=== PATIENT | male | born 1970 | race Caucasian/White ===

== ENCOUNTER 2019-04-09 01:42 | Emergency (ER) | payer OTHER ==
[~2019-04-09] VITALS: Ht 182.8 cm; Wt 101.1 kg
[2019-04-09] MEDS ORDERED: ASPIRIN 81 MG CHEW (CHILDREN'S ASA) PO ONE (02:30)
--- NOTE | 2019-04-09 02:31 | ED Chest Pain ---
General Stated Complaint: CARDIAC ISSUES Source: patient, other Exam Limitations: no limitations History of Present Illness Date Seen by Provider: Apr 09, 2019 Time Seen by Provider: 02:10 Initial Comments Patient presents to ER by private conveyance with chief complaint last couple days he has been having some intermittent poking goal pain across his chest, migrating nonreproducible. He is not having any pain presently. He is having some mild swelling in his left wrist pain and pressure and is afraid he has a blood clot. He does not have a history of blood clots. He does not smoke cigarettes. He does use chewing tobacco. He does not have diabetes hyperlipidemia or hypertension. 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 He had a thorough workup at [facility] and says that his heart was okay and he does not have heart failure or coronary disease. He is not having any nausea sweats fever chills shortness of breath, cough. He does have a history of carpal tunnel syndrome bilaterally and has had carpal tunnel release by a surgeon in [place] where he recently moved from. He feels that pressure and pain in his left wrist is radiating up the ulnar side of his forearm towards his elbow. When his left wrist is compressed re-creates her symptoms and his elbow. Since he recently moved here he does not have a primary care doctor. His oncologist is at [facility] in [place]. He is a historical smoker and snorts meth with his last use in December of 2017. Allergies and Home Medications Allergies Coded Allergies: No Known Drug Allergies (Unverified , 04/09/19) Patient Home Medication List Home Medication List Reviewed: Yes Review of Systems Review of Systems Constitutional: No chills, No diaphoresis EENTM: No Blurred Vision, No Double Vision Respiratory: Denies Cough, Denies Shortness of Air Cardiovascular: See HPI, Chest Pain; Denies Edema, Denies Irregular Heart Rate, Denies Lightheadedness Gastrointestinal: Denies Abdomen Distended, Denies Abdominal Pain Genitourinary: Denies Burning, Denies Discharge Musculoskeletal: see HPI; No back pain, No joint pain Skin: No pruritus, No rash All Other Systems Reviewed Negative Unless Noted: Yes Past Vlecptj-Rsvxer-Skldqp Hx Patient Social History Alcohol Use: Occasionally Uses Alcohol Beverage of Choice: Wine Recreational Drug Use: Yes Drug of Choice: Meth Smoking Status: Former Smoker Type Used: Smokeless Tobacco Recent Foreign Travel: No Contact w/Someone Who Travel: No Physical Exam Vital Signs Capillary Refill : Height, Weight, BMI Height: '" Weight: lbs. oz. kg; BMI Method: General Appearance: No Apparent Distress, WD/WN, Anxious HEENT: PERRL/EOMI, Pharynx Normal, Moist Mucous Membranes Neck: Full Range of Motion, Normal Inspection Respiratory: Chest Non Tender, Lungs Clear, Normal Breath Sounds, No Accessory Muscle Use, No Respiratory Distress Cardiovascular: Regular Rate, Rhythm, No Edema, Normal Peripheral Pulses Neurologic/Psychiatric: Alert, Oriented x3, No Motor/Sensory Deficits, Other (Tinel's tap positive re-creation of symptoms of the median/ulnar nerve track of the left forearm; he is animated, jerking, unable to hold still.) Skin: Other (negative for erythema, warmth, thrombophlebitis) Progress/Results/Core Measures Results/Orders Lab Results Laboratory Tests Test 04/09/19 02:52 Range/Units White Blood Count 3.8 L 4.3-11.0 10^3/uL Red Blood Count 4.58 4.35-5.85 10^6/uL Hemoglobin 14.0 13.3-17.7 G/DL Hematocrit 42 40-54 % Mean Corpuscular Volume 92 80-99 FL Mean Corpuscular Hemoglobin 31 25-34 PG Mean Corpuscular Hemoglobin Concent 33 32-36 G/DL Red Cell Distribution Width 15.3 H 10.0-14.5 % Platelet Count 112 L 130-400 10^3/uL Mean Platelet Volume 11.0 H 7.4-10.4 FL Neutrophils (%) (Auto) 50 42-75 % Lymphocytes (%) (Auto) 20 12-44 % Monocytes (%) (Auto) 21 H 0-12 % Eosinophils (%) (Auto) 7 0-10 % Basophils (%) (Auto) 2 0-10 % Neutrophils # (Auto) 1.9 1.8-7.8 X 10^3 Lymphocytes # (Auto) 0.8 L 1.0-4.0 X 10^3 Monocytes # (Auto) 0.8 0.0-1.0 X 10^3 Eosinophils # (Auto) 0.3 0.0-0.3 10^3/uL Basophils # (Auto) 0.1 0.0-0.1 10^3/uL Neutrophils % (Manual) 50 % Lymphocytes % (Manual) 21 % Monocytes % (Manual) 20 % Eosinophils % (Manual) 9 % Prothrombin Time 13.5 12.2-14.7 SEC INR Comment 1.0 0.8-1.4 Activated Partial Thromboplast Time 41 H 24-35 SEC D-Dimer 0.47 0.00-0.49 UG/ML Sodium Level 142 135-145 MMOL/L Potassium Level 3.9 3.6-5.0 MMOL/L Chloride Level 109 H 98-107 MMOL/L Carbon Dioxide Level 23 21-32 MMOL/L Anion Gap 10 5-14 MMOL/L Blood Urea Nitrogen 8 7-18 MG/DL Creatinine 0.82 0.60-1.30 MG/DL Estimat Glomerular Filtration Rate > 60 BUN/Creatinine Ratio 10 Glucose Level 84 70-105 MG/DL Calcium Level 9.2 8.5-10.1 MG/DL Corrected Calcium 9.2 8.5-10.1 MG/DL Magnesium Level 2.1 1.6-2.4 MG/DL Total Bilirubin 1.1 H 0.1-1.0 MG/DL Aspartate Amino Transf (AST/SGOT) 50 H 5-34 U/L Alanine Aminotransferase (ALT/SGPT) 24 0-55 U/L Alkaline Phosphatase 126 40-136 U/L Myoglobin 54.3 10.0-92.0 NG/ML Troponin I < 0.028 <0.028 NG/ML B-Type Natriuretic Peptide 36.6 <100.0 PG/ML Total Protein 6.7 6.4-8.2 GM/DL Albumin 4.0 3.2-4.5 GM/DL My Orders Orders - CAREY RICO Cbc With Automated Diff (04/09/19 02:24) Magnesium (04/09/19 02:24) Ekg Tracing (04/09/19 02:24) Comprehensive Metabolic Panel (04/09/19 02:24) Myoglobin Serum (04/09/19 02:24) Protime With Inr (04/09/19 02:24) Partial Thromboplastin Time (04/09/19 02:24) O2 (04/09/19 02:24) Monitor-Rhythm Ecg Trace Only (04/09/19 02:24) BNP (04/09/19 02:24) Aspirin Chewable Tablet (Baby Aspirin Ch (04/09/19 02:30) Fibrin Degradation Products (04/09/19 02:24) Troponin I (04/09/19 02:24) Manual Differential (04/09/19 02:52) Medications Given in ED Current Medications Medications Dose Ordered Sig/Chani Route Start Time Stop Time Status Last Admin Dose Admin Aspirin 324 mg ONCE ONCE PO 04/09/19 02:30 04/09/19 02:31 DC 04/09/19 02:39 324 MG Progress Progress Note #1: Time: 02:33 Progress Note Working up separately. His chest pain in his left upper extremity concerns. His chest pain is fleeting lasting only a few minutes and not present now. His been going on for days and a single EKG and troponin will rule out heart attack as the source of his pain. Sounds like he has described already a very thorough cardiac workup outpatient. The concern that brings him in tonight however is his left wrist and forearm pain and swelling which seems to be more likely a nerve entrapment syndrome probably from the carpal tunnel or cubital tunnel. If the d-dimer failed to rule out blood clot since such a concern of his then we can give him a dose of Lovenox and have an ultrasound done later today. He is in agreement with this plan. Progress Note #2: Time: 02:55 Progress Note The patient declined to further participate in x-ray or laboratory exam. He left AGAINST MEDICAL ADVICE prior to completion of his workup while this provider was in another room. Nursing staff discussed the risks inherent to not completing the workup and he accepted these risks and signed out AMA. He was not having any chest pain at the time he left. 0400: Subsequent review of his labs rules out clots with a negative d-dimer and a negative troponin after days of intermittent chest pain would make a heart attack unlikely. We have already suggested to him that he would need to follow- up with his primary care doctor discussed a nerve entrapment syndrome and hopefully he will pursue this workup outpatient. Initial ECG Impression Date: Apr 09, 2019 Initial ECG Impression Time: 02:34 Initial ECG Rate: 89 Initial ECG Rhythm: Normal Sinus Initial ECG Intervals: QT (502) Initial ECG Impression: Normal Initial ECG Comparisson: No Previous ECG Available Comment No ST elevation or depression. Prolonged QT syndrome. Normal sinus rhythm. 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 Decision time for Depature: 02:55 Referrals: NO,LOCAL PHYSICIAN (PCP/Family) Primary Care Physician Patient Instructions: Cubital Tunnel Syndrome (DC) Add. Discharge Instructions: Please follow-up with the primary care provider or the surgeon who did your previous carpal tunnel release for further management outpatient. Tylenol and ibuprofen as necessary for pain. CAREY RICO Apr 09, 2019 02:31 POS
--- NOTE | 2019-04-09 02:40 | NUR ---
PT STATES, "DON'T YOU KNOW WHO MY DAD IS?" "MY DAD IS DOCTOR PATEL. 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 YA KNOW? MAGIC CHEMISTRY?" THIS MICRO PHOTOGRAPHER/RN INFORMED PT I AM UNAWARE WHO HIS FATHER IS. PT KEEPS ASKING QUESTIONS ABOUT EDUCATION HISTORY.
--- NOTE | 2019-04-09 02:52 | NUR ---
LABS DRAWN BY ER STAFF JESE FUENTES.
--- NOTE | 2019-04-09 02:52 | NUR ---
TO ROOM 6, TO DRAW PTS BLOOD. RIGHT BEFORE INSERTING THE NEEDLE THE PT SAID "I PROMISE YOU WILL BE SORRY IF YOU STICK THAT VEIN ON THE OUTSIDE OF MY ARM". I ASKED THE PT WHAT HE MEANT AND HE REPLIED "HOW ILL REACT, YOU'LL BE SORRY, YOU CAN ONLY STICK THE BIG ONE IN THE MIDDLE" AFTER FINISHING THE LAB DRAW, THE PT THEN BEGAN TO RAISE HIS VOICE AND COMPLAIN ABOUT HOW POOR THE BED SIDE MANNER IS IN THIS FACILITY AND BEGAN RIPPING OFF MONITOR LEADS AND BLOOD PRESSURE CUFF.
--- NOTE | 2019-04-09 02:53 | NUR ---
THIS SERVICENOW ADMINISTRATOR DEVELOPER/RN IN ED ROOM 6 REVIEWING D/C INSTRUCTIONS WITH A PT WHEN LOUD SPEAKING CAN BE HEARD IN HALLWAY. WHEN THIS SERVICENOW ADMINISTRATOR DEVELOPER/RN OPENED THE DOOR THE PT OF THIS ACCOUNT WAS SPEAKING TO JESE FUENTES STATING, "I'VE BEEN TO [facility]. THEY KNOW BEDSIDE MANNER. YOU SHOULD GO STUDY UNDER THEM BECAUSE THEY KNOW BEDSIDE MANNER AT [facility]. YOU AND THAT OTHER NURSE NEED TO GO TO [facility]." PT REQUESTS TO LEAVE AMA. KELSEY RASHEED DISCUSSED WITH PT BENEFITS AND RISKS AND CONSEQUENCES TO LEAVING. PT VOICES UNDERSTANDING, BUT STILL WANTS TO LEAVE AMA. PT SIGNED AMA FORM AT THIS TIME. DR. RICO NOTIFIED.
--- NOTE | 2019-04-09 02:53 | NUR ---
PATIENT COMES OUT OF ROOM 10 WEARING HIS COAT FOLLOWED BY ONE FEMALE PERSON. THIS RN ASKED IF HE WOULD MIND SIGNING AN AMA FORM, HE STOPS AND SAID YES I WILL SIGN IT, THEN CONTINUES TO LOUDLY VERBALIZE HOW "THIS PLACE NEEDS TO LEARN BEDSIDE MANNER" THAT NURSE (POINTING AT GINA PCCT, PATIENT IS YELLING AT THIS TIME.)NEEDS AN EDUCATION ON HOW TO TREAT PATIENTS, HER BEDSIDE MANNER IS TERRIBLE, AND SO IS THAT OTHER NURSE. NEITHER ONE KNOW ANYTHING ABOUT BEDSIDE MANNER, DIMA BEEN TO [facility] AND THEY KNOW HOW TO TREAT THEIR PATIENTS". PATIENT WAS VERY AGGRESSIVE TOWARD GINA, THIS RN WAS STANDING BETWEEN HER AND PATIENT HE POINTED HIS FINGER AT HER AGGRESSIVELY. AMA FORM SIGNED DR RICO INFORMED OF PATIENT DEPARTURE.
[2019-04-09 02:55] VITALS: BP 140/98
[2019-04-09 03:02] LABS: BASOPHILS # (AUTO) 0.1 10^3/uL (0.0-0.1); BASOPHILS % (AUTO) 2 % (0-10); EOSINOPHILS # (AUTO) 0.3 10^3/uL (0.0-0.3); EOSINOPHILS % (AUTO) 7 % (0-10); HEMATOCRIT 42 % (40-54); LYMPHOCYTES # (AUTO) 0.8 X 10^3 (1.0-4.0); LYMPHOCYTES % (AUTO) 20 % (12-44); MEAN CORPUSCULAR HEMOGLOBIN 31 PG (25-34); MEAN CORPUSCULAR HGB CONC 33 G/DL (32-36); MEAN CORPUSCULAR VOLUME 92 FL (80-99); MONOCYTES # (AUTO) 0.8 X 10^3 (0.0-1.0); MONOCYTES % (AUTO) 21 % (0-12); NEUTROPHILS # (AUTO) 1.9 X 10^3 (1.8-7.8); NEUTROPHILS % (AUTO) 50 % (42-75); PLATELET COUNT 112 10^3/uL (130-400); RED CELL DISTRIBUTION WIDTH 15.3 % (10.0-14.5); WHITE BLOOD COUNT 3.8 10^3/uL (4.3-11.0)
[2019-04-09 03:16] LABS: FIBRIN DEGRADATION PRODUCTS 0.47 UG/ML (0.00-0.49); PROTHROMBIN TIME PATIENT 13.5 SEC (12.2-14.7)
[2019-04-09 03:19] LABS: ALANINE AMINOTRANSFERASE 24 U/L (0-55); ALKALINE PHOSPHATASE 126 U/L (40-136); BILIRUBIN,TOTAL 1.1 MG/DL (0.1-1.0); BUN/CREATININE RATIO 10; CALCIUM 9.2 MG/DL (8.5-10.1); CARBON DIOXIDE 23 MMOL/L (21-32); CHLORIDE 109 MMOL/L (98-107); CREATININE SERUM 0.82 MG/DL (0.60-1.30); GFR ESTIMATED > 60; GLUCOSE 84 MG/DL (70-105); MAGNESIUM 2.1 MG/DL (1.6-2.4); POTASSIUM 3.9 MMOL/L (3.6-5.0); SODIUM 142 MMOL/L (135-145); TOTAL PROTEIN 6.7 GM/DL (6.4-8.2)
[2019-04-09 03:53] LABS: LYMPHOCYTES % (MANUAL) 21 %; NEUTROPHILS % (MANUAL) 50 %
[2019-04-09 03:54] LABS: EOSINOPHILS % (MANUAL) 9 %; MONOCYTES % (MANUAL) 20 %
== END 2019-04-09 02:55 | disposition left against medical advice (07) ==
LOC: EDUNIT# 01:42 → ER 01:49
DX: G56.22 Lesion of ulnar nerve, left upper limb (principal); R07.89 Other chest pain; C91.Z1 Other lymphoid leukemia, in remission; Z87.891 Personal history of nicotine dependence
CPT/HCPCS: 36415; 80053; 83735; 83874; 83880; 84484; 85007; 85027; 85379; 85610; 85730; 93005; 93041

== ENCOUNTER 2022-01-02 15:44 | Emergency (ER) | payer MEDICARE ==
[~2022-01-02] VITALS: Ht 180 cm; Wt 113.0 kg
--- NOTE | 2022-01-02 16:38 | ED Headache ---
General Chief Complaint: Head/Cervical Problems Stated Complaint: PERAZA Nursing Triage Note: PT STATES HE HAS A.L.L. HAS A CATHETER IN THE FRONTAL LOBE OF HIS BRAIN, LESION ON LT FRONTAL LOBE,HAS A HEADACHE, HAS BEEN TREATED AT [facility] AND IS TRYING TO MOVE TO FOR TREATMENT, AT [facility] SUGGESTS CT OF HEAD WITH AND W/O CONTRAST. HAS BEEN OUT OF HIS BP MED FOR 2 DAYS Source: patient Exam Limitations: no limitations History of Present Illness Date Seen by Provider: Jan 02, 2022 Time Seen by Provider: 16:33 Initial Comments This is a 51-year-old male that presents to the emergency room for evaluation of headache for the last 3 days. 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 He states that he recently moved up here and is trying to transition care to [place]. He tells me that he has had this headache for the last 3 days and that he spoke with his neurologist yesterday and they referred him to the emergency room to obtain neuroimaging. However, the patient could not get here until today. He denies any fever, chills, shortness of breath, weakness Severity/Quality: moderate Location: frontal Prior Headaches/Recent Trauma: frequent headaches Allergies and Home Medications Allergies Coded Allergies: No Known Drug Allergies (Unverified , 04/09/19) Patient Home Medication List Home Medication List Reviewed: Yes Review of Systems Review of Systems Constitutional: no symptoms reported Eyes: No Symptoms Reported Ears, Nose, Mouth, Throat: no symptoms reported Respiratory: no symptoms reported Cardiovascular: no symptoms reported Musculoskeletal: no symptoms reported Psychiatric/Neurological: Headache Past Nlbzgtf-Hkuzcc-Gnbiok Hx Patient Social History Tobacco Use?: No Substance use?: No Alcohol Use?: Yes Alcohol type: Beer Alcohol Frequency: Rarely Immunizations Up To Date First/Initial COVID19 Vaccinat: 08/2021 COVID19 Vaccine Floor Polisher: 1 SPECIAL COVID SHOT FROM [facility] Seasonal Allergies Seasonal Allergies: No Past Medical History Surgery/Hospitalization HX: 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, HYPERTENSION, MITRAL VALVE REGURGITATION Surgeries: Yes (BILATERAL CARPAL TUNNEL SURGERIES) Respiratory: No Cardiac: No Neurological: No Genitourinary: No Gastrointestinal: No Musculoskeletal: No Endocrine: No HEENT: No Cancer: Yes (ALL) Psychosocial: Yes (OCD) ADD/ADHD Integumentary: No Physical Exam Vital Signs Vital Signs - First Documented 01/02/22 15:52 Temp 36.9 Pulse 93 Resp 20 B/P (MAP) 212/83 (126) Pulse Ox 97 O2 Delivery Room Air Capillary Refill : Less Than 3 Seconds Height, Weight, BMI Height: '" Weight: lbs. oz. kg; 34.00 BMI Method: General Appearance: WD/WN, no apparent distress HEENT: PERRL/EOMI Neck: non-tender, full range of motion Cardiovascular: regular rate, rhythm Respiratory: no respiratory distress Gastrointestinal: normal bowel sounds Extremities: normal range of motion, non-tender Psychiatric: alert, oriented x 3 Skin: normal color, warm/dry Progress/Results/Core Measures Results/Orders Lab Results Laboratory Tests Test 01/02/22 17:20 Range/Units White Blood Count 6.0 4.3-11.0 10^3/uL Red Blood Count 4.44 4.30-5.52 10^6/uL Hemoglobin 14.3 13.3-17.7 g/dL Hematocrit 42 40-54 % Mean Corpuscular Volume 94 80-99 fL Mean Corpuscular Hemoglobin 32 25-34 pg Mean Corpuscular Hemoglobin Concent 34 32-36 g/dL Red Cell Distribution Width 15.2 H 10.0-14.5 % Platelet Count 158 130-400 10^3/uL Mean Platelet Volume 10.3 9.0-12.2 fL Immature Granulocyte % (Auto) 1 % Neutrophils (%) (Auto) 66 42-75 % Lymphocytes (%) (Auto) 13 12-44 % Monocytes (%) (Auto) 15 H 0-12 % Eosinophils (%) (Auto) 4 0-10 % Basophils (%) (Auto) 1 0-10 % Neutrophils # (Auto) 3.9 1.8-7.8 10^3/uL Lymphocytes # (Auto) 0.8 L 1.0-4.0 10^3/uL Monocytes # (Auto) 0.9 0.0-1.0 10^3/uL Eosinophils # (Auto) 0.2 0.0-0.3 10^3/uL Basophils # (Auto) 0.1 0.0-0.1 10^3/uL Immature Granulocyte # (Auto) 0.1 0.0-0.1 10^3/uL Sodium Level 145 135-145 MMOL/L Potassium Level 4.3 3.6-5.0 MMOL/L Chloride Level 112 H 98-107 MMOL/L Carbon Dioxide Level 21 21-32 MMOL/L Anion Gap 12 5-14 MMOL/L Blood Urea Nitrogen 11 7-18 MG/DL Creatinine 0.94 0.60-1.30 MG/DL Estimat Glomerular Filtration Rate 99 BUN/Creatinine Ratio 12 Glucose Level 98 70-105 MG/DL Calcium Level 9.0 8.5-10.1 MG/DL My Orders Orders - CHRISTIANO CHEN Basic Metabolic Panel (01/02/22 16:50) Ct Head W Wo (01/02/22 16:50) Ed Iv/Invasive Line Start (01/02/22 16:50) Cbc With Automated Diff (01/02/22 16:50) Iohexol Injection (Omnipaque 350 Mg/Ml 1 (01/02/22 17:30) Received Contrast (Hold Metformin- Contr (01/02/22 17:30) Sodium Chloride Flush (Catheter Flush Sy (01/02/22 17:30) Ns (Ivpb) (Sodium Chloride 0.9% Ivpb Bag (01/02/22 17:30) Medications Given in ED Current Medications Medications Dose Ordered Sig/Chani Route Start Time Stop Time Status Last Admin Dose Admin Iohexol 100 ml ONCE ONCE IV 01/02/22 17:30 01/02/22 17:31 DC 01/02/22 17:40 80 ML Sodium Chloride 10 ml NEEDED PRN IV 01/02/22 17:30 01/02/22 17:41 10 ML Sodium Chloride 100 ml ONCE ONCE IV 01/02/22 17:30 01/02/22 17:31 DC 01/02/22 17:40 80 ML Vital Signs/I&O 01/02/22 15:52 Temp 36.9 Pulse 93 Resp 20 B/P (MAP) 212/83 (126) Pulse Ox 97 O2 Delivery Room Air Blood Pressure Mean: 126 Departure Communication (PCP) I placed a call to his neurology team at 16:[address] Bell and she recommends CT head w/wo contrast. She also recommends treating the headache and having the patient follow up with his neurology team for an MRI. The CT of the head did not show any obvious acute pathology. I discussed with the patient the results and recommended that he follow-up with the neurology team for the MRI as recommended by the on-call provider. He is in agreement to the care plan and will return with any severe changes or worsening symptoms. Impression Primary Impression: Headache Disposition: 01 HOME, SELF-CARE Condition: Stable Departure-Patient Inst. Decision time for Depature: 18:10 Referrals: NO,LOCAL PHYSICIAN (PCP/Family) Primary Care Physician Patient Instructions: Headache, Adult (DC) Add. Discharge Instructions: Please follow-up with your neurology team as we discussed. They may want to obtain further imaging. Return to the emergency room with any severe changes or worsening of symptoms. All discharge instructions reviewed with patient and/or family. Voiced und erstanding. CHRISTIANO CHEN Jan 02, 2022 16:38
[2022-01-02] MEDS ORDERED: IOHEXOL 350 MG/ML 100 ML (OMNIPAQUE 350) VIAL IV ONE (17:30)
[2022-01-02] MEDS ORDERED: CATHETER FLUSH 10 ML SYR IV PRN (17:30)
[2022-01-02] MEDS ORDERED: NS 100 ML (IVPB) BAG IV ONE (17:30)
[2022-01-02] MEDS ORDERED: HOLD METFORMIN - RECEIVED CONTRAST 20 ML VIAL IV SCH (17:30)
[2022-01-02 17:34] LABS: BASOPHILS # (AUTO) 0.1 10^3/uL (0.0-0.1); BASOPHILS % (AUTO) 1 % (0-10); EOSINOPHILS # (AUTO) 0.2 10^3/uL (0.0-0.3); EOSINOPHILS % (AUTO) 4 % (0-10); HEMATOCRIT 42 % (40-54); HEMOGLOBIN 14.3 g/dL (13.3-17.7); LYMPHOCYTES # (AUTO) 0.8 10^3/uL (1.0-4.0); LYMPHOCYTES % (AUTO) 13 % (12-44); MEAN CORPUSCULAR HEMOGLOBIN 32 pg (25-34); MEAN CORPUSCULAR HGB CONC 34 g/dL (32-36); MEAN CORPUSCULAR VOLUME 94 fL (80-99); MEAN PLATELET VOLUME 10.3 fL (9.0-12.2); MONOCYTES # (AUTO) 0.9 10^3/uL (0.0-1.0); MONOCYTES % (AUTO) 15 % (0-12); NEUTROPHILS # (AUTO) 3.9 10^3/uL (1.8-7.8); NEUTROPHILS % (AUTO) 66 % (42-75); PLATELET COUNT 158 10^3/uL (130-400)
[2022-01-02 17:41] LABS: POTASSIUM 4.3 MMOL/L (3.6-5.0)
[2022-01-02 17:47] LABS: CREATININE SERUM 0.94 MG/DL (0.60-1.30)
--- NOTE | 2022-01-02 17:58 | Diagnostic Imaging Report ---
PROCEDURE: CT head with and without contrast. TECHNIQUE: Multiple contiguous axial images were obtained through the brain before and after the administration of intravenous contrast. Auto Exposure Controls were utilized during the CT exam to meet ALARA standards for radiation dose reduction. INDICATION: 51-year-old male, has ALL, known left frontal lobe lesion, shunt tubing. Headache. CORRELATION STUDY: None. FINDINGS: Right frontal shunt tube is present, tip courses into the anterior aspect of the right frontal lobe, terminating near midline. The ventricles are very slightly prominent, but without definitive hydrocephalus. No intracranial hemorrhage. No midline shift. Basilar cisterns are maintained. No asymmetric edema. Postcontrast imaging demonstrates no significant abnormal intracranial enhancement. Shunt bulb over the right frontal calvarium does appear to be slightly prominent. Bony calvarium intact apart from surgical change. Paranasal sinuses and mastoid air cells are clear. IMPRESSION: Right frontal shunt tube present. Ventricles are very slightly prominent without definitive overt hydrocephalus. However, given no priors for comparison, potential change in size and configuration cannot be assessed. No appreciable midline shift or mass effect. No abnormal contrast enhancement. Dictated by: Dictated on workstation # [id number]
[2022-01-02 18:17] VITALS: BP 161/114
== END 2022-01-02 18:17 | disposition home or self-care (01) ==
LOC: EDUNIT# 15:44 → ER 15:46
DX: R51.9 Headache, unspecified (principal); Z28.311 Partially vaccinated for COVID-19
CPT/HCPCS: 36415; 70470; 80048; 85025

== ENCOUNTER 2022-07-17 17:40 | Emergency (ER) | payer MEDICARE ==
[2022-07-17] MEDS ORDERED: ACHD5005 PO (18:05)
--- NOTE | 2022-07-17 18:06 | ED Upper Extremity ---
General Chief Complaint: Upper Extremity Stated Complaint: BACK / SHOULDER / ARM PAIN Source: patient Exam Limitations: no limitations History of Present Illness Date Seen by Provider: Jul 17, 2022 Time Seen by Provider: 17:48 Initial Comments Here with report of right shoulder pain that has been going on over the last week notes intermittent swelling and is a constant dull ache currently. States that its at the posterior aspect of the lateral shoulder but also has pain from the shoulder blade. States when he gets the pain he can sometimes get numbness that goes all the way down to his hand. Denies any specific injury. 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 He is also had bilateral carpal tunnel release. All of this was done in [place] where he still receives care for leukemia. 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 He does chew but does not smoke. He has been using IcyHot or similar for the pain as well as taking ibuprofen and intermittently taking Tylenol. Due to the recent cell therapy, he cannot take steroids. States that treatment stated helped a little bit but then things come back and he wanted to get checked out. Onset: last week Severity: moderate Pain/Injury Location: right shoulder Method of Injury: unknown Modifying Factors: Worse With Movement; Improves With Pain Medication Allergies and Home Medications Allergies Coded Allergies: No Known Drug Allergies (Unverified , 04/09/19) Patient Home Medication List Home Medication List Reviewed: Yes Hydrocodone/Acetaminophen (Hydrocodone-Acetamin 5-325 mg) 5 Mg-325 Mg Tablet, 1 TAB PO Q6H PRN for PAIN-MODERATE (5-7) Prescribed by: NICK MOBLEY on 07/17/221805 Review of Systems Constitutional: see HPI; No chills, No fever EENTM: no symptoms reported Respiratory: no symptoms reported Cardiovascular: no symptoms reported Musculoskeletal: see HPI, joint pain, muscle pain; No muscle weakness Psychiatric/Neurological: Numbness, Paresthesia Past Rddbdeu-Cffkxr-Ifqnyu Hx Patient Social History Tobacco Use?: Yes Smokeless Tobacco Frequency: Current Everyday User Substance use?: No Alcohol Use?: No Pt feels they are or have been: No Immunizations Up To Date First/Initial COVID19 Vaccinat: 08/2021 Seasonal Allergies Seasonal Allergies: No Past Medical History Surgery/Hospitalization HX: 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 oz. kg; 34.00 BMI Method: General Appearance: WD/WN, no apparent distress Cardiovascular: regular rate, rhythm, no murmur Respiratory: lungs clear, normal breath sounds Shoulder: No asymmetry; pain (Pain with forward extension and full supination of the arm. Pain noted posterior lateral shoulder. Also tender to palpation between shoulder blade and spine. 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 Physical exam performed. Patient has some findings consistent with rotator cuff injury but also potentially some rhomboid injury. He is using toxm-ycl-qespodv therapy and we discussed this further. We did discuss follow-up and outpatient management. No indication for x-ray currently as he has not had specific injury recently. We did give a sling as well as a go pack for hydrocodone and small prescription for same. Prescription therapy and precautions discussed. Pharmacies are not open currently. He will continue dzop-wzv-jwzpomp therapy as well advised follow-up with one of the orthopedist listed or of his choosing. He will also follow-up with his oncology team back in [place]. May benefit from MRI if pain persists. Discharged home with return precautions. Patient verbalized understanding instructions and agreement with plan. Departure Impression Primary Impression: Right shoulder pain Qualified Codes: M25.511 - Pain in right shoulder Disposition: 01 HOME, SELF-CARE Condition: Stable Departure-Patient Inst. Decision time for Depature: 18:02 Referrals: CLAUDIA ANGUIANO MD,ITALIA Ennis MD Patient Instructions: Rotator Cuff Injury (DC), Rotator Cuff Tear Exercises, Shoulder Pain ED, Opioids for Short-Term Treatment of Pain ED Add. Discharge Instructions: All discharge instructions reviewed with patient and/or family. Voiced understanding. You may use hqvm-ymn-ehykfaf Icy Hot with lidocaine patches or cream, Aspercreme with lidocaine patches or cream, Salonpas with lidocaine patches or cream or similar items to area of concern per package directions. You may take ibuprofen 600 mg every 8 hours as needed for pain. You may also take Tylenol/acetaminophen 1000 mg every 8 hours as needed for pain. Otherwise take pain medication as prescribed but do not take with Tylenol/acetaminophen as they both have acetaminophen in them. You may use a sling for comfort as needed over the next several days to weeks. Follow-up with one of the orthopedist listed or of your choosing. Follow-up with your primary team in [place] as well. Return for worse pain, weakness, numbness or other concerns as needed. Scripts Hydrocodone/Acetaminophen (Hydrocodone-Acetamin 5-325 mg) 5 Mg-325 Mg Tablet 1 TAB PO Q6H PRN for PAIN-MODERATE (5-7) for 7 Days, #8 TAB 0 Refills Prov: NICK MOBLEY MD 07/17/22 NICK MOBLEY MD Jul 17, 2022 18:06
[2022-07-17 18:12] VITALS: BP 129/92
== END 2022-07-17 18:11 | disposition home or self-care (01) ==
LOC: EDUNIT# 17:40 → ER 17:41
DX: M25.511 Pain in right shoulder (principal); C95.90 Leukemia, unspecified not having achieved remission; F17.220 Nicotine dependence, chewing tobacco, uncomplicated
CPT/HCPCS: 99283

== ENCOUNTER 2022-07-19 11:16 | Emergency (ER) | payer MEDICARE ==
[~2022-07-19] VITALS: Ht 180 cm; Wt 108.0 kg
[~2022-07-19 11:16] MED LIST: ACHD5005 PO
[2022-07-19] MEDS ORDERED: PENI500T PO (12:20)
--- NOTE | 2022-07-19 12:20 | ED EENT ---
History of Present Illness General Chief Complaint: Dental Problems/Pain Stated Complaint: TOOTH INFECTION | IMMUNO COMPROMISED Nursing Triage Note: ARRIVED VIA AMB WITH COMPLAINTS OF LEFT SIDED DENTAL PAIN AND FACIAL SWELLING. STATES HE WENT TO THE DENTIST YESTERDAY BUT WAS NOT PRESCRIBED ABX. Source: patient Exam Limitations: no limitations History of Present Illness Date Seen by Provider: Jul 19, 2022 Time Seen by Provider: 12:05 Initial Comments Patient is a 51-year-old male who presents to the emergency room with a chief complaint of left-sided dental pain. Patient states that he had onset of pain over the course of about a week. He states he went to the dentist yesterday and was not prescribed any antibiotics. Patient is very concerned because of continuing pain/discomfort and some swelling that he has an infection. He has a history of immunocompromise status with leukemia, 4 years in remission. He recently moved to the area, has not established care yet. Denies fevers or chills. No drainage from an abscess in his mouth or foul taste. No other complaints of recent illness or injury. Simply desirous of antibiotics today. I was notified by nursing staff that the patient was quite upset due to his wait. Multiple other patients in the department requiring emergent care as the patient was simply requesting an antibiotic, there was a slight delay in assessing the patient. Apologies were made. Timing/Duration: gradual Severity: moderate Location: dental Prearrival Treatment: over the counter meds (pain medications) Associated Symptoms: denies symptoms, tooth pain Allergies and Home Medications Allergies Coded Allergies: No Known Drug Allergies (Unverified , 04/09/19) Patient Home Medication List Home Medication List Reviewed: Yes Penicillin V Potassium (Penicillin V Potassium) 500 Mg Tablet, 500 MG PO QID Prescribed by: MOSES IVORY on 07/19/22 1220 Discontinued Medications Hydrocodone/Acetaminophen (Hydrocodone-Acetamin 5-325 mg) 5 Mg-325 Mg Tablet, 1 TAB PO Q6H PRN for PAIN-MODERATE (5-7) Discontinued Reason: No Longer Taking Prescribed by: NICK MOBLEY on 07/17/22 1806 Last Action: Discontinued Review of Systems Review of Systems Constitutional: see HPI Ears: No Symptoms Reported Nose: no symptoms reported Mouth: pain (Dental pain) Throat: no symptoms reported Respiratory: no symptoms reported Cardiovascular: no symptoms reported Gastrointestinal: no symptoms reported Musculoskeletal: no symptoms reported Skin: no symptoms reported All Other Systems Reviewed Negative Unless Noted: Yes Past Qlvloum-Vdrknd-Bozhnq Hx Patient Social History Tobacco Use?: Yes Substance use?: No Alcohol Use?: No Immunizations Up To Date First/Initial COVID19 Vaccinat: 08/2021 Second COVID19 Vaccination Ramon: 08/2021 Third COVID19 Vaccination Date: 08/2021 Seasonal Allergies Seasonal Allergies: No Past Medical History Surgery/Hospitalization HX: 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 oz. kg; 33.00 BMI Method: General Appearance: WD/WN, no apparent distress Eyes: bilateral eye normal inspection, bilateral eye PERRL, bilateral eye EOMI Ears: bilateral ear auricle normal, bilateral ear canal normal, bilateral ear TM normal Mouth/Throat: normal mouth inspection; No dental tenderness; other (No evidence of intraoral dental abscess, the patient is complaining of dental pain lower jaw.) Neck: non-tender, full range of motion, supple Cardiovascular: regular rate, rhythm Respiratory: lungs clear, normal breath sounds, no respiratory distress, no accessory muscle use Neurologic/Psychiatric: alert, normal mood/affect, oriented x 3 Skin: normal color, warm/dry Progress/Results/Core Measures Results/Orders Vital Signs/I&O Blood Pressure Mean: 107 Departure Impression Primary Impression: Pain, dental Disposition: 01 HOME, SELF-CARE Condition: Stable Departure-Patient Inst. Decision time for Depature: 12:16 Referrals: [facility] [place],LOCAL PHYSICIAN (PCP) Primary Care Physician Patient Instructions: Dental Pain Add. Discharge Instructions: Take the penicillin antibiotic as directed for the next 10 days. Try and avoid using chewing tobacco as it constricts the blood flow to the teeth and can worsen infection and pain. Over the counter Ibuprofen 3 tablets every 6 hours as needed for pain. Always take Ibuprofen with food. If you develop worsening pain with facial swelling and/or fever please return to the Emergency Department for re-evaluation. [facility] on [place] here in [facility] runs a dental clinic. Scripts Penicillin V Potassium (Penicillin V Potassium) 500 Mg Tablet 500 MG PO QID for 10 Days, #40 TAB Prov: MOSES IVORY MD 07/19/22 Copy Copies To 1: DEISY LARRY KATHRYN M MD Jul 19, 2022 12:20
[2022-07-19 12:32] VITALS: BP 138/91
== END 2022-07-19 12:34 | disposition home or self-care (01) ==
LOC: EDUNIT# 11:16 → ER 11:19
DX: K08.89 Other specified disorders of teeth and supporting structures (principal)
CPT/HCPCS: 99282

== ENCOUNTER 2022-07-19 22:32 | Emergency (ER) | payer MEDICARE ==
[~2022-07-19 22:32] MED LIST changes: +PENI500T PO
== END 2022-07-19 22:55 | disposition left against medical advice (07) ==
LOC: EDUNIT# 22:32 → ER 22:33
DX: K08.89 Other specified disorders of teeth and supporting structures (principal); R22.0 Localized swelling, mass and lump, head

== ENCOUNTER 2022-08-12 01:22 | Emergency (ER) | payer MEDICARE ==
[~2022-08-12] VITALS: Ht 180 cm; Wt 108.0 kg
[2022-08-12 01:35] VITALS: BP 140/101
[2022-08-12] MEDS ORDERED: BENZONATATE 100 MG (TESSALON) CAPSULE PO STA (02:03)
--- NOTE | 2022-08-12 02:03 | ED Cough/URI ---
General Chief Complaint: Cough/Cold/Flu Symptoms Stated Complaint: PERSISTENT COUGH Nursing Triage Note: Pt presents with c/o cough x2 weeks. He reports he went to clinic last monday and received a z-akil and inhaler, but continues to cough. Pt has recent t-cell therapy and is unable to take steroid. He states he receives no relief from inhaler. Source: patient Exam Limitations: no limitations History of Present Illness Date Seen by Provider: Aug 12, 2022 Time Seen by Provider: 01:50 Initial Comments Patient is a 51-year-old male who presents to the emergency department with a chief complaint of cough for the last 10 days. He denies fevers or chills. No runny nose, sore throat or congestion. He has been wheezing, using an inhaler. Last use was around 5 PM. Former smoker, quit a year ago. Also "fighting ALL" for the last 5 years recently completed "CAR-T therapy" at the end of June. He is currently getting his treatment through . He denies a history of DVT/blood clot. No recent travel, prolonged immobility or surgeries. Cough is productive of white sputum . States that he was seen at [facility] on Monday, had a chest x-ray and was prescribed a "Z-Akil" but it has not helped. He states he has been taking Mucinex and cough suppressant without relief. No abdominal pain, nausea vomiting or diarrhea. Timing/Duration: other (10 days) Severity/Quality: productive cough (white sputum), sputum Modifying Factors: Improves With Albuterol Inhaler (last use 5 pm) Associated Symptoms: cough, wheezing Allergies and Home Medications Allergies Coded Allergies: No Known Drug Allergies (Unverified , 04/09/19) Patient Home Medication List Home Medication List Reviewed: Yes Penicillin V Potassium (Penicillin V Potassium) 500 Mg Tablet, 500 MG PO QID Prescribed by: MOSES IVORY on 07/19/22 1220 Review of Systems Review of Systems Constitutional: see HPI EENTM: no symptoms reported Respiratory: cough, phlegm, wheezing Gastrointestinal: no symptoms reported Genitourinary: no symptoms reported Musculoskeletal: no symptoms reported Skin: no symptoms reported Psychiatric/Neurological: No Symptoms Reported All Other Systems Reviewed Negative Unless Noted: Yes Past Oavxbcp-Trzklo-Bdbusg Hx Immunizations Up To Date Influenza Vaccine Up-to-Date: No; Not Current First/Initial COVID19 Vaccinat: 08/2021 Second COVID19 Vaccination Ramon: 08/2021 Third COVID19 Vaccination Date: 08/2021 Seasonal Allergies Seasonal Allergies: No Past Medical History Surgery/Hospitalization HX: 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, HYPERTENSION, MITRAL VALVE REGURGITATION Surgeries: Yes (BILATERAL CARPAL TUNNEL SURGERIES) Respiratory: No Cardiac: No Neurological: No Genitourinary: No Gastrointestinal: No Musculoskeletal: No Endocrine: No HEENT: No Cancer: Yes (ALL) Psychosocial: Yes (OCD) ADD/ADHD Integumentary: No Physical Exam Vital Signs - First Documented 08/12/22 08/12/22 01:35 02:29 Temp 36.4 Pulse 97 Resp 20 B/P (MAP) 140/101 (114) Pulse Ox 94 O2 Delivery Room Air O2 Flow Rate 0 FiO2 21 Capillary Refill : Less Than 3 Seconds Height: '" Weight: lbs. oz. kg; 33.00 BMI Method: General Appearance: WD/WN, no apparent distress Eyes: Bilateral Eye Normal Inspection, Bilateral Eye PERRL, Bilateral Eye EOMI Progress/Results/Core Measures Suspected Sepsis SIRS Temperature: Pulse: 97 Respiratory Rate: 20 Laboratory Tests 08/12/22 02:14: White Blood Count 4.1L Blood Pressure 140 /101 Mean: 114 Laboratory Tests 08/12/22 02:14: Creatinine 0.85, Platelet Count 191 Results/Orders Lab Results Laboratory Tests Test 08/12/22 02:14 Range/Units White Blood Count 4.1 L 4.3-11.0 10^3/uL Red Blood Count 4.45 4.30-5.52 10^6/uL Hemoglobin 14.6 13.3-17.7 g/dL Hematocrit 42 40-54 % Mean Corpuscular Volume 93 80-99 fL Mean Corpuscular Hemoglobin 33 25-34 pg Mean Corpuscular Hemoglobin Concent 35 32-36 g/dL Red Cell Distribution Width 14.9 H 10.0-14.5 % Platelet Count 191 130-400 10^3/uL Mean Platelet Volume 10.9 9.0-12.2 fL Immature Granulocyte % (Auto) 1 % Neutrophils (%) (Auto) 68 42-75 % Lymphocytes (%) (Auto) 12 12-44 % Monocytes (%) (Auto) 13 H 0-12 % Eosinophils (%) (Auto) 5 0-10 % Basophils (%) (Auto) 1 0-10 % Neutrophils # (Auto) 2.8 1.8-7.8 10^3/uL Lymphocytes # (Auto) 0.5 L 1.0-4.0 10^3/uL Monocytes # (Auto) 0.6 0.0-1.0 10^3/uL Eosinophils # (Auto) 0.2 0.0-0.3 10^3/uL Basophils # (Auto) 0.0 0.0-0.1 10^3/uL Immature Granulocyte # (Auto) 0.1 0.0-0.1 10^3/uL D-Dimer 0.29 0.00-0.49 UG/ML Sodium Level 140 135-145 MMOL/L Potassium Level 4.0 3.6-5.0 MMOL/L Chloride Level 108 H 98-107 MMOL/L Carbon Dioxide Level 21 21-32 MMOL/L Anion Gap 11 5-14 MMOL/L Blood Urea Nitrogen 11 7-18 MG/DL Creatinine 0.85 0.60-1.30 MG/DL Estimat Glomerular Filtration Rate 107 BUN/Creatinine Ratio 13 Glucose Level 87 70-105 MG/DL Calcium Level 9.3 8.5-10.1 MG/DL My Orders Orders - MOSES IVORY MD Ed Iv/Invasive Line Start (08/12/22 02:03) Cbc With Automated Diff (08/12/22 02:03) Basic Metabolic Panel (08/12/22 02:03) Fibrin Degradation Products (08/12/22 02:03) Chest Pa/Lat (2 View) (08/12/22 02:03) Benzonatate Capsule (Tessalon Perles) (08/12/22 02:03) Albuterol/Ipra Inhalation Soln (Duoneb I (08/12/22 02:15) Svn Small Volume Nebulizer (08/12/22 02:03) Rx-Acetaminophen/Codeine (Rx-Tylenol #3) (08/12/22 03:00) Medications Given in ED Current Medications Medications Dose Ordered Sig/Chani Route Start Time Stop Time Status Last Admin Dose Admin Albuterol/ Ipratropium 3 ml ONCE ONCE INH 08/12/22 02:15 08/12/22 02:16 DC 08/12/22 02:29 3 ML Vital Signs/I&O 08/12/22 08/12/22 01:35 02:29 Temp 36.4 Pulse 97 Resp 20 B/P (MAP) 140/101 (114) Pulse Ox 94 O2 Delivery Room Air O2 Flow Rate 0 FiO2 21 Capillary Refill : Less Than 3 Seconds Blood Pressure Mean: 114 Progress Note : Time: 03:12 Progress Note Patient seen and examined, evaluation today includes physical exam, CBC, basic metabolic panel, D-dimer and two-view chest x-ray. Physical exam pertinent for well-developed well-nourished 51-year-old male actively coughing with forced expiratory wheeze as well as scattered expiratory wheezes in the left lung more than the right lung. No increased work of breathing or respiratory distress. Room air sats 97%. HEENT exam otherwise unremarkable. Heart is regular, abdomen is soft and benign. No lower extremity edema or calf tenderness. Sli ghtly hypertensive with diastolic of 105. Differential diagnosis based on history and physical examination, pneumonia, bronchitis, exacerbation of reactive airway disease/COPD, pulmonary embolism Labs independently reviewed by me, CBC shows a white blood cell count of 4.1 with slightly depressed lymphocytes. Chemistry within normal limits. D-dimer negative. Chest x-ray independently reviewed by me, slightly hyperexpanded lungs with no infiltrate or effusion, normal mediastinal structures. Patient is treated with Tessalon Perles here in the emergency department as well as a DuoNeb breathing treatment. He had a little relief of symptoms for short while but then started coughing again. Discussed findings with the patient no findings concerning for pneumonia. He is not persistently wheezing at discharge. He may have an element of COPD. His D-dimer is negative helpful in excluding pulmonary embolism. He is PERC negative. Patient will be discharged home with Tessalon Perles and acetaminophen with codeine syrup. Recommendations for cool-mist humidifier, Robitussin [id number]. Follow-up with primary. He cannot have steroids for 3 months post CAR-T therapy. Return precautions provided he verbalized understanding of the plan of care. All questions are sought and answered. Diagnostic Imaging Diagonstic Imaging: Xray Plain Films/CT/US/NM/MRI: chest Comments Chest x-ray, independent interpretation by me, hyperexpanded, no infiltrate or effusion Departure Impression Primary Impression: Bronchitis Disposition: 01 HOME, SELF-CARE Condition: Stable Departure-Patient Inst. Decision time for Depature: 03:00 Referrals: NO,LOCAL PHYSICIAN (PCP/Family) Primary Care Physician Patient Instructions: Bronchitis, Adult ED Add. Discharge Instructions: Drink plenty of fluids to stay well hydrated. Take the tylenol with codeine syrup 1-2 teaspoons every 6 hours as needed for cough. I have sent a prescription to your pharmacy. Continue your inhaler, 2 puffs every 4 hours as needed for wheezing. You should take an over the counter Allergy medication such as Claritin or chrissy, this will help with mucous production. Robitussin is a good medication for cough as well. Run a cool mist humidifier in your room at night. FOllow up with the clinic next week for re-evaluation. Return to the Emergency Department for any new, concerning or emergent complai nts. Scripts Benzonatate (TESSALON PERLES) 100 Mg Capsule 200 MG PO TID PRN for cough, #20 CAP Prov: MOSES IVORY MD 08/12/22 Acetaminophen with Codeine (Acetaminop-Codeine 120-12 mg/5) 120 Mg-12 Mg/5 Ml Solution 10 ML PO Q6H PRN for cough, #100 ML Prov: MOSES IVORY MD 08/12/22 MOSES IVORY MD Aug 12, 2022 02:03
[2022-08-12] MEDS ORDERED: RT-ALBUTEROL/IPRATROPIUM 3 ML (DUONEB) VIAL INH ONE (02:15)
[2022-08-12 02:22] LABS: BASOPHILS % (AUTO) 1 % (0-10); EOSINOPHILS # (AUTO) 0.2 10^3/uL (0.0-0.3); EOSINOPHILS % (AUTO) 5 % (0-10); HEMATOCRIT 42 % (40-54); HEMOGLOBIN 14.6 g/dL (13.3-17.7); LYMPHOCYTES # (AUTO) 0.5 10^3/uL (1.0-4.0); LYMPHOCYTES % (AUTO) 12 % (12-44); MEAN CORPUSCULAR HEMOGLOBIN 33 pg (25-34); MEAN CORPUSCULAR HGB CONC 35 g/dL (32-36); MEAN CORPUSCULAR VOLUME 93 fL (80-99); MEAN PLATELET VOLUME 10.9 fL (9.0-12.2); MONOCYTES # (AUTO) 0.6 10^3/uL (0.0-1.0); MONOCYTES % (AUTO) 13 % (0-12); NEUTROPHILS # (AUTO) 2.8 10^3/uL (1.8-7.8); NEUTROPHILS % (AUTO) 68 % (42-75); PLATELET COUNT 191 10^3/uL (130-400); WHITE BLOOD COUNT 4.1 10^3/uL (4.3-11.0)
[2022-08-12 02:38] LABS: CALCIUM 9.3 MG/DL (8.5-10.1)
[2022-08-12 02:42] LABS: CREATININE SERUM 0.85 MG/DL (0.60-1.30)
[2022-08-12] MEDS ORDERED: ACET118E PO (03:04)
[2022-08-12] MEDS ORDERED: BENZ100C18 PO (03:04)
[2022-08-12] MEDS: RX-ACETAMINOPHEN/CODEINE TAB PPK #4 PO SCH (03:14)
--- NOTE | 2022-08-12 07:00 | Diagnostic Imaging Report ---
PATIENT HISTORY: cough wheezing SOB. TECHNIQUE: Two views of the chest. COMPARISON: None FINDINGS: The lung volumes are normal. No focal consolidation is seen. No large pleural effusion or pneumothorax is seen. The cardiomediastinal silhouette is normal in size and contour. No acute osseous abnormality is seen. IMPRESSION: No acute pulmonary abnormality seen. Dictated by: Dictated on workstation # [id number]
== END 2022-08-12 03:25 | disposition home or self-care (01) ==
LOC: EDUNIT# 01:22 → ER 01:30
DX: J40 Bronchitis, not specified as acute or chronic (principal); I10 Essential (primary) hypertension; Z87.891 Personal history of nicotine dependence; Z79.51 Long term (current) use of inhaled steroids
CPT/HCPCS: 36415; 71046; 80048; 85025; 85379; 94640

== ENCOUNTER 2022-09-17 06:20 | Emergency (ER) | payer MEDICARE ==
[~2022-09-17] VITALS: Ht 175.2 cm; Wt 90.7 kg
[~2022-09-17 06:20] MED LIST changes: +ACET118E PO; +BENZ100C18 PO
[2022-09-17 06:28] VITALS: BP 154/105
--- NOTE | 2022-09-17 06:50 | ED General ---
General Chief Complaint: Substance Abuse Stated Complaint: RT SIDE OF FACE SWELLING,EARS POPPING Nursing Triage Note: PATIENT AMBULATORY TO ROOM WIHT COMPLAINT OF PRESSURE RT SIDE OF NECK AND LOSS OF SENSATION IN LOWER EXTREMITIES. PATIENT STATES HE DID METH LAST NIGHT, STATES HE HAS BEEN CLEAN FOR A "WHILE" Source of Information: Patient Exam Limitations: No Limitations History of Present Illness Date Seen by Provider: September 17, 2022 Time Seen by Provider: 06:30 Initial Comments This 52-year-old gentleman presents to the emergency room with complaints of swelling in his right posterior neck, right-sided facial discomfort and swelling, right foot numbness, right ear popping, and skin sores. He is concerned about having a stroke or something wrong with a ruptured artery. He recently relapsed with methamphetamine use. He used methamphetamine last night. 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 He was treated and is followed by an oncologist in [place] and reports he receives quarterly bone marrow biopsies for surveillance. He reports now living here in the [facility]. Despite having 5 emergency room visits in the last 3 months, he has not established with a primary care provider. His complaints of swelling and numbness are not validated on exam with the exception of some subtle variation in sensation on the right ankle. Sensation is maintained but feels a little different than the left. He otherwise appears neurologically intact and no swelling is noted anywhere except to the left nasal labia where he has a ellison and associated cellulitis. Allergies and Home Medications Allergies Coded Allergies: No Known Drug Allergies (Unverified , 04/09/19) Patient Home Medication List Home Medication List Reviewed: Yes Acetaminophen with Codeine (Acetaminop-Codeine 120-12 mg/5) 120 Mg-12 Mg/5 Ml Solution, 10 ML PO Q6H PRN for cough Prescribed by: MOSES IVORY on 08/12/22 030 Benzonatate (Tessalon Perles) 100 Mg Capsule, 200 MG PO TID PRN for cough Prescribed by: MOSES IVORY on 08/12/22 0304 Penicillin V Potassium (Penicillin V Potassium) 500 Mg Tablet, 500 MG PO QID Prescribed by: MOSES IVORY on 07/19/22 1220 Sulfamethoxazole/Trimethoprim (Bactrim Ds Tablet) 1 Each Tablet, 1 EACH PO BID Prescribed by: FLAVIA SAGASTUME on 09/17/22 0657 Review of Systems Review of Systems Constitutional: no symptoms reported EENTM: see HPI Respiratory: no symptoms reported Cardiovascular: no symptoms reported Gastrointestinal: no symptoms reported Genitourinary: no symptoms reported Musculoskeletal: no symptoms reported Skin: see HPI Psychiatric/Neurological: See HPI Hematologic/Lymphatic: See HPI Immunological/Allergic: no symptoms reported Past Onmxtvx-[id number]-[id number] Hx Patient Social History Tobacco Use?: No Smokeless Tobacco Frequency: Current Everyday User Use of E-Cig and/or Vaping dev: No Substance use?: Yes Substance type: Methamphetamine Alcohol Use?: Yes Alcohol Frequency: Once in a while Immunizations Up To Date First/Initial COVID19 Vaccinat: 08/2021 Second COVID19 Vaccination Ramon: 08/2021 Third COVID19 Vaccination Date: 08/2021 Seasonal Allergies Seasonal Allergies: No Past Medical History Surgery/Hospitalization HX: 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, HYPERTENSION, MITRAL VALVE REGURGITATION Surgeries: Yes (BILATERAL CARPAL TUNNEL SURGERIES, bone marrow biopsy) Respiratory: No Cardiac: Yes Hypertension, Valvular Heart Disease (Valvular regurg) Neurological: Yes Neuropathy Genitourinary: No Gastrointestinal: No Musculoskeletal: No Endocrine: No HEENT: No Cancer: Yes (ALL in remission) Did You Recieve Any Treatments: Yes What Type of Treatment Did You: Chemotherapy, Surgical Intervention Psychosocial: Yes (OCD, substance abuse) ADD/ADHD Integumentary: No Physical Exam Vital Signs Vital Signs - First Documented 09/17/22 06:28 Temp 36.5 Pulse 88 Resp 18 B/P (MAP) 154/105 (121) Pulse Ox 98 O2 Delivery Room Air Capillary Refill : Less Than 3 Seconds Height, Weight, BMI Height: '" Weight: lbs. oz. kg; 29.00 BMI Method: General Appearance: No Apparent Distress, WD/WN HEENT: PERRL/EOMI, TMs Normal, Pharynx Normal, Other (There is a ellison on the underside of the left nasal labia with associated erythema and swelling of the left nasal labia suggestive of cellulitis) Neck: Normal Inspection, Non Tender, Supple; No Lymphadenopathy (L), No Lymphadenopathy (R) Respiratory: Lungs Clear, Normal Breath Sounds, No Accessory Muscle Use, No Respiratory Distress Cardiovascular: Regular Rate, Rhythm, Normal Peripheral Pulses, Systolic Murmur (Very subtle), Other (Scant lower extremity edema) Gastrointestinal: Non Tender, Soft; No Distended Extremity: Non Tender, Other (Scant lower extremity edema) Neurologic/Psychiatric: Alert, Oriented x3, Normal 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, 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 Norm as Tested; No Motor Weakness; Other (Subtle decrease in sensation intensity in the right ankle consistent in distribution of his neuropathy) Skin: Warm/Dry, Erythema (Left nasal labia), Other (Few scattered excoriated skin sores) Progress/Results/Core Measures Suspected Sepsis SIRS Temperature: Pulse: 88 Respiratory Rate: 18 Blood Pressure 154 /105 Mean: 121 Results/Orders My Orders Orders - FLAVIA ADAMS MD Sulfamethoxazole/Trimet Ds Tab (Bactrim (09/17/22 07:00) Vital Signs/I&O 09/17/22 06:28 Temp 36.5 Pulse 88 Resp 18 B/P (MAP) 154/105 (121) Pulse Ox 98 O2 Delivery Room Air Capillary Refill : Less Than 3 Seconds Blood Pressure Mean: 121 Progress Note : Progress Note By my interpretation of his exam, the only significant finding was a ellison with associated cellulitis of the left nasal labia. He had no measurable weakness on neurologic exam. His change in sensation of the right ankle seems to be in a distribution of his neuropathy and an exacerbation of chronic neuropathy. There was no true loss of sensation. He seems paranoid about complaints that I cannot validate on exam. I suspect he has had an exacerbation of his neuropathy due to recent relapse of methamphetamine use. He is receiving instructions on return precautions regarding stroke symptoms. I did offer CT scan of the head and basic labs as a precaution but did communicate that I was not suspicious we would find major abnormalities on the studies based on his exam findings. He elected to forego the CT and labs. I did unroof the ellison on his left nasal labia. Skin was cleaned with alcohol and a hypodermic needle was used to scrape off the ellison. Skin was then cleaned again with alcohol. His first dose of Bactrim was received in the emergency room. He has been given resources for local primary care providers and contact information for [facility] and [facility] for help with substance abuse. See discharge instructions for further discussion. Departure Impression Primary Impression: Cellulitis of nose Additional Impressions: Neuropathy Methamphetamine use Disposition: HOME, SELF-CARE Condition: Stable Departure-Patient Inst. Referrals: FLOR AUGUSTE MD,ESMER Geller MD [facility] DUTCH,ERIC BOX,JESUSITA Myers MD NO,LOCAL PHYSICIAN (PCP) Primary Care Physician WANDA ARCHER,VINCENT SALGADO MD, DO Patient Instructions: ALCOHOL AND SUBSTANCE ABUSE, Cellulitis and Erysipelas (Skin Infections) Add. Discharge Instructions: Establish with a primary care provider soon as possible. A list of local providers is given below. Complete your antibiotics as prescribed. Discontinue methamphetamine use and seek assistance with substance abuse. Some good local resources including the [facility] at [phone] and [facility] at [phone]. Return to the emergency room if you develop signs or symptoms of stroke including paralysis or weakness of your extremities, facial drooping, problems speaking or understanding speech, confusion, vision changes, loss of sensation different than your neuropathy, or other sudden changes in your neurologic status. Also return to the emergency room if you have progressive signs of infection such as rapidly spreading redness of the skin, fever, etc. All discharge instructions reviewed with patient and/or family. Voiced understanding. Scripts Sulfamethoxazole/Trimethoprim (Bactrim Ds Tablet) 1 Each Tablet 1 EACH PO BID, #14 TAB Prov: FLAVIA ADAMS MD 09/17/22 FLAVIA ADAMS MD September 17, 2022 06:50
[2022-09-17] MEDS ORDERED: SULF1TAB38 PO (06:57)
[2022-09-17] MEDS ORDERED: TRIM/SULFAMETH 160/800 (SEPTRA DS) TAB PO ONE (07:00)
== END 2022-09-17 07:03 | disposition home or self-care (01) ==
LOC: EDUNIT# 06:20 → ER 06:23
DX: J34.0 Abscess, furuncle and carbuncle of nose (principal); F15.90 Other stimulant use, unspecified, uncomplicated; G62.89 Other specified polyneuropathies; C91.01 Acute lymphoblastic leukemia, in remission; F17.290 Nicotine dependence, other tobacco product, uncomplicated; Z79.899 Other long term (current) drug therapy; Z28.310 Unvaccinated for COVID-19
CPT/HCPCS: 99283

== ENCOUNTER 2023-01-29 17:38 | Emergency (ER) | payer MEDICARE ==
[~2023-01-29] VITALS: Ht 180.3 cm; Wt 106.6 kg
[~2023-01-29 17:38] MED LIST changes: +SULF1TAB38 PO
[2023-01-29] MEDS ORDERED: NS IV 1000 ML 1,000 ML IV STA ×2 (17:47→19:35)
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
[2023-01-29 17:56] LABS: BASOPHILS % (AUTO) 3 % (0-10); EOSINOPHILS % (AUTO) 3 % (0-10); HEMATOCRIT 30 % (40-54); HEMOGLOBIN 10.4 g/dL (13.3-17.7); LYMPHOCYTES # (AUTO) 0.3 10^3/uL (1.0-4.0); LYMPHOCYTES % (AUTO) 74 % (12-44); MEAN CORPUSCULAR HEMOGLOBIN 33 pg (25-34); MEAN CORPUSCULAR HGB CONC 35 g/dL (32-36); MEAN CORPUSCULAR VOLUME 93 fL (80-99); MEAN PLATELET VOLUME 9.6 fL (9.0-12.2); MONOCYTES % (AUTO) 9 % (0-12); NEUTROPHILS % (AUTO) 11 % (42-75)
[2023-01-29 17:58] LABS: PLATELET COUNT 21 10^3/uL (130-400); WHITE BLOOD COUNT 0.4 10^3/uL (4.3-11.0)
[2023-01-29] MEDS ORDERED: Tetanus/Diphtheria/Pertussis (Acell) ADULT Vaccine 0.5 ML IM ONE (18:00)
[2023-01-29 18:06] LABS: ALBUMIN 4.2 GM/DL (3.2-4.5)
[2023-01-29 18:07] LABS: POTASSIUM 3.5 MMOL/L (3.6-5.0)
[2023-01-29 18:08] LABS: CALCIUM 8.7 MG/DL (8.5-10.1)
[2023-01-29 18:09] LABS: TOTAL PROTEIN 6.4 GM/DL (6.4-8.2)
[2023-01-29 18:11] LABS: BILIRUBIN,TOTAL 2.1 MG/DL (0.1-1.0)
[2023-01-29 18:17] LABS: BAND NEUTROPHILS 0 %; LYMPHOCYTES % (MANUAL) 88 %; MONOCYTES % (MANUAL) 4 %; NEUTROPHILS % (MANUAL) 8 %
[2023-01-29 18:18] LABS: BASOPHILS % (MANUAL) 0 %; EOSINOPHILS % (MANUAL) 0 %; RBC MORPH NORMAL
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
[2023-01-29 19:35] LABS: CREATININE SERUM 0.85 MG/DL (0.60-1.30)
[2023-01-29] MEDS ORDERED: LORazepam 1 MG TABLET PO STA (19:35)
[2023-01-29] MEDS ORDERED: NICOTINE 2 MG LOZENGE MM STA (19:35)
[2023-01-29] MEDS ORDERED: VANCOMYCIN INJECTION 1,000 MG in NS (IVPB) 250 ML 250 ML IV ONE (19:45)
[2023-01-29] MEDS ORDERED: PIPERACILLIN/Tazobactam 4.5 GM in NS (IVPB) 100 ML 100 ML IV ONE (19:45)
[2023-01-29 19:50] LABS: PROTHROMBIN TIME PATIENT 13.6 SEC (12.2-14.7)
--- NOTE | 2023-01-29 20:32 | Diagnostic Imaging Report ---
EXAMINATION: Chest 1 view. HISTORY: Sepsis. Neutropenia. COMPARISON: 08/12/2022. FINDINGS: The lung volumes are normal. No focal consolidation is seen. No large pleural effusion or pneumothorax is seen. The cardiomediastinal silhouette is normal in size and contour. No acute osseous abnormality is seen. IMPRESSION: No acute pleuroparenchymal process. Dictated by: Dictated on workstation # [id number]
[2023-01-29] MEDS ORDERED: KETOROLAC INJ 30 MG/ML VIAL IVP ONE (21:15)
[2023-01-29 22:28] VITALS: BP 135/84
[2023-01-29] MEDS ORDERED: ACETAMINOPHEN 500 MG TABLET PO ONE (22:30)
== END 2023-01-29 22:28 | disposition short-term general hospital (02) ==
LOC: EDUNIT# 17:38 → ER 17:42
DX: S40.011A Contusion of right shoulder, initial encounter (principal); S00.81XA Abrasion of other part of head, initial encounter; D70.9 Neutropenia, unspecified; L03.113 Cellulitis of right upper limb; C91.00 Acute lymphoblastic leukemia not having achieved remission; Z23 Encounter for immunization; W18.30XA Fall on same level, unspecified, initial encounter
CPT/HCPCS: 36415; 70450; 71045; 80053; 83605; 83735; 85007; 85027; 85384; 85610; 85730; 87040; 90715

== ENCOUNTER 2023-02-17 02:43 | Emergency (ER) | payer MEDICARE ==
--- NOTE | 2023-02-17 03:16 | ED General ---
General Stated Complaint: FEELS PULSE IN BACK OF NECK,PSYCH Source of Information: Patient (EXTREMELY DIFFICULT HISTORIAN) History of Present Illness Date Seen by Provider: Feb 17, 2023 Time Seen by Provider: 03:00 Initial Comments PT WALKS INTO ER STATES HE IS HOMELESS STATES "DID SOME DRUGS-SOME METH- A COUPLE OF DAYS AGO AND I HAVEN'T BEEN ABLE TO SLEEP SINCE THEN" . PT STATES HE SMOKED IT. HE HAS HISTORY OF IV DRUG USE, BUT STATES HE HAS NOT USED IV DRUGS "FOR A LONG TIME" ALSO STATES HE'S BEEN "HEARIN' THINGS AND SEEIN' THINGS" SINCE HE DID METH HE FOUND AN OLD MATTRESS AND THINKS HE SAW SOME BED BUGS AND WANTS CHECKED FOR BED BUGS HE ALSO STATES THAT HE HAD "16 OZ" OF BEER EARLIER TODAY PT HAS A.L.L. LEUKEMIA--NOT CURRENTLY RECEIVING ANY TREATMENT. STATES HE IS "PLANNING ON STARTING ON ORAL CHEMO" BUT HAS NOT ATTEMPTED TO CONTACT NEW ONCOLOGIST PT WAS SEEING ONCOLOGY BUT WAS DISMISSED FROM ONCOLOGY AND THE CAMPUS FOR AGGRESSIVE AND BELLIGERENT BEHAVIOR, AND DRINKING ALCOHOL AND LIQUID SA NITIZER WHILE HE WAS THERE. PT WAS SEEN HERE 01/29/23 AND WAS TRANSFERRED TO [facility] FOR FEBRILE NEUTROPENIA AND RIGHT HAND CELLULITIS. 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 HE HAS NOT FOLLOWED UP WITH ANYONE SINCE THIS HOSPITALIZATION--LATER STATES HE WAS SEEN AT [facility] "COUPLE OF DAYS AGO". HE HAS HAD RECENT BONE MARROW BIOPSY PCP: NONE, PER PT--LATER STATES HE GOES TO [facility] Allergies and Home Medications Allergies Coded Allergies: No Known Drug Allergies (Unverified , 04/09/19) Patient Home Medication List Home Medication List Reviewed: Yes Acetaminophen with Codeine (Acetaminop-Codeine 120-12 mg/5) 120 Mg-12 Mg/5 Ml Solution, 10 ML PO Q6H PRN for cough Prescribed by: MOSES IVORY on 08/12/22 0305 Benzonatate (Tessalon Perles) 100 Mg Capsule, 200 MG PO TID PRN for cough Prescribed by: MOSES IVORY on 08/12/22 0304 Penicillin V Potassium (Penicillin V Potassium) 500 Mg Tablet, 500 MG PO QID Prescribed by: MOSES IVORY on 07/19/22 1220 Sulfamethoxazole/Trimethoprim (Bactrim Ds Tablet) 1 Each Tablet, 1 EACH PO BID Prescribed by: FLAVIA SAGASTUME on 09/17/22 0657 Review of Systems Review of Systems Constitutional: no symptoms reported Respiratory: no symptoms reported Cardiovascular: no symptoms reported Gastrointestinal: no symptoms reported Genitourinary: no symptoms reported Musculoskeletal: see HPI Skin: see HPI Psychiatric/Neurological: See HPI Hematologic/Lymphatic: See HPI Immunological/Allergic: see HPI Past Divzbtn-Llhdgg-Dcaibg Hx Patient Social History Tobacco Use?: Yes Substance use?: Yes Substance type: Amphetamines, Methamphetamine Additional substance use comme: HX OF IV EMTH USE, ALSO SMOKES IT Alcohol Use?: Yes Immunizations Up To Date First/Initial COVID19 Vaccinat: 08/2021 Second COVID19 Vaccination Ramon: 08/2021 Third COVID19 Vaccination Date: 08/2021 Seasonal Allergies Seasonal Allergies: No Past Medical History Surgery/Hospitalization HX: 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, HYPERTENSION, MITRAL VALVE REGURGITATION Surgeries: Yes (BILATERAL CARPAL TUNNEL SURGERIES, bone marrow biopsy) Orthopedic Respiratory: No Cardiac: Yes Hypertension, Valvular Heart Disease Neurological: Yes Neuropathy Genitourinary: No Gastrointestinal: No Musculoskeletal: No Endocrine: No HEENT: No Cancer: Yes (ALL) Leukemia Did You Recieve Any Treatments: Yes What Type of Treatment Did You: Chemotherapy, Surgical Intervention Psychosocial: Yes (OCD, substance abuse) ADD/ADHD Integumentary: No Physical Exam Vital Signs Vital Signs - First Documented 02/17/23 03:01 Temp 36.8 Pulse 111 Resp 20 B/P (MAP) 158/99 (118) Pulse Ox 98 O2 Delivery Room Air Capillary Refill : Height, Weight, BMI Height: '" Weight: lbs. oz. kg; 32.00 BMI Method: General Appearance: No Apparent Distress, WD/WN, Anxious, Other (CONSTANT MOVEMENTS, ANXIOUS, SPEECH IS RAPID AND SOMEWHAT ERRATIC AND TALKS NON-STOP. HE DOES NOT APPEAR ACUTELY ILL OR TO BE IN ANY ACUTE DISTRESS. ) HEENT: PERRL/EOMI Neck: Normal Inspection Respiratory: Normal Breath Sounds, No Accessory Muscle Use, No Respiratory Distress Cardiovascular: Regular Rate, Rhythm, No Murmur Gastrointestinal: Non Tender, Soft Back: No CVA Tenderness, No Vertebral Tenderness, Other (BONE MARROW BIOPSY SITES NOTED TO SACRAL/ILIAC AREAS BILATERALLY) Extremity: Other (RIGHT HAND AND FINGERS WITH MODERATE SWELLING AND ERYTHEMA, AND SOME SCALING OF SKIN. ALSO HAS SIMILAR TO LEFT 5TH FINGER. THERE IS A SCABBED WOUND TO DORSAL ASPECT OF RIGHT HAND OVER 5TH METACARPAL AREA. THESE AREAS HAVE THE APPEARANCE OF SOME POST-INFLAMMATORY DISCOLORATION AND ARE NOT BRIGHT RED OR WARM TO TOUCH. PT DOES HAVE FULL ROM, AND SENSORY/VASCULAR INTACT. ) Neurologic/Psychiatric: Alert, Oriented x3, No Motor/Sensory Deficits, experimental technician II- XII Norm as Tested Skin: Normal Color, Warm/Dry, Other ( ABOVE. NO BED BUGS OR OBVIOUS INSECT BITES NOTED ON PATIENT. ) Progress/Results/Core Measures Suspected Sepsis SIRS Temperature: Pulse: Respiratory Rate: Laboratory Tests 02/17/23 03:23: White Blood Count 7.1 Blood Pressure / Mean: Laboratory Tests 02/17/23 03:23: Creatinine 0.91, Platelet Count 163, Total Bilirubin 0.9 Results/Orders Lab Results Laboratory Tests Test 02/17/23 03:23 02/17/23 03:30 Range/Units White Blood Count 7.1 4.3-11.0 10^3/uL Red Blood Count 2.90 L 4.30-5.52 10^6/uL Hemoglobin 10.0 L 13.3-17.7 g/dL Hematocrit 30 L 40-54 % Mean Corpuscular Volume 104 H 80-99 fL Mean Corpuscular Hemoglobin 35 H 25-34 pg Mean Corpuscular Hemoglobin Concent 33 32-36 g/dL Red Cell Distribution Width 23.8 H 10.0-14.5 % Platelet Count 163 130-400 10^3/uL Mean Platelet Volume 10.6 9.0-12.2 fL Immature Granulocyte % (Auto) 2 % Neutrophils (%) (Auto) 75 42-75 % Lymphocytes (%) (Auto) 8 L 12-44 % Monocytes (%) (Auto) 13 H 0-12 % Eosinophils (%) (Auto) 0 0-10 % Basophils (%) (Auto) 3 0-10 % Neutrophils # (Auto) 5.3 1.8-7.8 10^3/uL Lymphocytes # (Auto) 0.6 L 1.0-4.0 10^3/uL Monocytes # (Auto) 0.9 0.0-1.0 10^3/uL Eosinophils # (Auto) 0.0 0.0-0.3 10^3/uL Basophils # (Auto) 0.2 H 0.0-0.1 10^3/uL Immature Granulocyte # (Auto) 0.2 H 0.0-0.1 10^3/uL Neutrophils % (Manual) 62 % Lymphocytes % (Manual) 10 % Monocytes % (Manual) 8 % Basophils % (Manual) 6 % Metamyelocytes % 2 % Band Neutrophils 10 % Atypical Lymphocytes 4 % Polychromasia SLIGHT Poikilocytosis SLIGHT Anisocytosis MODERATE Microcytosis SLIGHT Macrocytosis MODERATE Stomatocytes SLIGHT Schistocytes SLIGHT Sodium Level 141 135-145 MMOL/L Potassium Level 4.6 3.6-5.0 MMOL/L Chloride Level 109 H 98-107 MMOL/L Carbon Dioxide Level 16 L 21-32 MMOL/L Anion Gap 16 H 5-14 MMOL/L Blood Urea Nitrogen 12 7-18 MG/DL Creatinine 0.91 0.60-1.30 MG/DL Estimat Glomerular Filtration Rate 103 BUN/Creatinine Ratio 13 Glucose Level 86 70-105 MG/DL Calcium Level 8.9 8.5-10.1 MG/DL Corrected Calcium 8.6 8.5-10.1 MG/DL Total Bilirubin 0.9 0.1-1.0 MG/DL Aspartate Amino Transf (AST/SGOT) 35 H 5-34 U/L Alanine Aminotransferase (ALT/SGPT) 20 0-55 U/L Alkaline Phosphatase 114 40-136 U/L Total Protein 6.5 6.4-8.2 GM/DL Albumin 4.4 3.2-4.5 GM/DL Serum Alcohol < 10 <10 MG/DL Urine Color YELLOW Urine Clarity CLEAR Urine pH 5.5 5-9 Urine Specific [place] 1.020 1.016-1.022 Urine Protein NEGATIVE NEGATIVE Urine Glucose (UA) NEGATIVE NEGATIVE Urine Ketones 1+ H NEGATIVE Urine Nitrite NEGATIVE NEGATIVE Urine Bilirubin NEGATIVE NEGATIVE Urine Urobilinogen 0.2 < = 1.0 MG/DL Urine Leukocyte Esterase NEGATIVE NEGATIVE Urine RBC (Auto) NEGATIVE NEGATIVE Urine RBC NONE /HPF Urine WBC 0-2 /HPF Urine Crystals NONE /LPF Urine Bacteria FEW H /HPF Urine Casts PRESENT /LPF Urine Hyaline Casts 2-5 H /LPF Urine Mucus SMALL H /LPF Urine Culture Indicated YES Urine Opiates Screen NEGATIVE NEGATIVE Urine Oxycodone Screen NEGATIVE NEGATIVE Urine Methadone Screen NEGATIVE NEGATIVE Urine Propoxyphene Screen NEGATIVE NEGATIVE Urine Barbiturates Screen NEGATIVE NEGATIVE Ur Tricyclic Antidepressants Screen NEGATIVE NEGATIVE Urine Phencyclidine Screen NEGATIVE NEGATIVE Urine Amphetamines Screen POSITIVE H NEGATIVE Urine Methamphetamines Screen POSITIVE H NEGATIVE Urine Benzodiazepines Screen POSITIVE H NEGATIVE Urine Cocaine Screen NEGATIVE NEGATIVE Urine Cannabinoids Screen NEGATIVE NEGATIVE My Orders Orders - LILY SMITH DO Monitor-Rhythm Ecg Trace Only (02/17/23 03:09) Alcohol (02/17/23 03:09) Cbc And Automated Diff (02/17/23 03:09) Comprehensive Metabolic Panel (02/17/23 03:09) Drug Screen Stat (Urine) (02/17/23 03:09) Ua Culture If Indicated (02/17/23 03:09) Manual Differential (02/17/23 03:23) Urine Culture (02/17/23 03:30) Vital Signs/I&O 02/17/23 02/17/23 03:01 04:29 Temp 36.8 36.8 Pulse 111 89 Resp 20 18 B/P (MAP) 158/99 (118) 145/89 Pulse Ox 98 98 O2 Delivery Room Air Room Air Capillary Refill : Progress Note : Progress Note VITALS ON ARRIVAL: TEMP 36.8, HR 111, RR 20, BP 158/99, O2 SAT 98% ON ROOM AIR LABS: -CBC WITH WBC 7.1, HGB 10.0, PLT 163,000 -CMP UNREMARKABLE -ETOH NEGATIVE -UDS + FOR AMPHETAMINES/METHAMPHETAMINES, BENZO'S ADVISED PT THAT I WOULD NOT BE GIVING HIM SLEEPING PILLS ALSO ADVISED HIM THAT HIS HALLUCINATIONS WERE DIRECTLY RELATED TO HIS METHAMPHETAMINE USE, HE STATES HE DOES NOT NORMALLY HAVE HALLUCINATIONS WHEN HE IS NOT UNDER THE INFLUENCE. PT IS NOT VOICING ANY SUICIDAL OR HOMICIDAL THOUGHTS. REVIEWED PRIOR RECORDS--ALL ER VISITS. DISCUSSED TEST RESULTS, ANTICIPATED COURSE, SYMPTOMATIC TREATMENT, NEED FOR FOLLOW UP AND RETURN PRECAUTIONS. PT VERIFIED THAT HE DOES HAVE PRESCRIPTION FOR BACTRIM AND ADVISED HIM OF IMPORTANCE OF TAKING IT EXACTLY PRESCRIBED. Departure Impression Primary Impression: Methamphetamine use Additional Impression: Cellulitis of right hand Disposition: HOME, SELF-CARE Condition: Stable Departure-Patient Inst. Decision time for Depature: 04:07 Referrals: NO,LOCAL PHYSICIAN (PCP/Family) Primary Care Physician Patient Instructions: ALCOHOL AND SUBSTANCE ABUSE, Methamphetamine, Substance Misuse Treatment, Cellulitis (Skin Infection), Adult ED Add. Discharge Instructions: NO DRUGS!! NO ALCOHOL!! NO SMOKING!! FINISH YOUR BACTRIM PRESCRIBED, AND GET NEW PRESCRIPTION FILLED AND TAKE PRESCRIBED FOLLOW UP WITH [facility] IN 2-3 DAYS TO RECHECK YOUR HAND FOLLOW UP WITH ONCOLOGIST OF CHOICE SOON POSSIBLE--CALL TODAY TO MAKE AN APPOINTMENT LILY SMITH DO Feb 17, 2023 03:16
[2023-02-17 03:31] LABS: BASOPHILS # (AUTO) 0.2 10^3/uL (0.0-0.1); BASOPHILS % (AUTO) 3 % (0-10); EOSINOPHILS % (AUTO) 0 % (0-10); HEMATOCRIT 30 % (40-54); LYMPHOCYTES # (AUTO) 0.6 10^3/uL (1.0-4.0); LYMPHOCYTES % (AUTO) 8 % (12-44); MEAN CORPUSCULAR HEMOGLOBIN 35 pg (25-34); MEAN CORPUSCULAR HGB CONC 33 g/dL (32-36); MEAN CORPUSCULAR VOLUME 104 fL (80-99); MEAN PLATELET VOLUME 10.6 fL (9.0-12.2); MONOCYTES # (AUTO) 0.9 10^3/uL (0.0-1.0); MONOCYTES % (AUTO) 13 % (0-12); NEUTROPHILS # (AUTO) 5.3 10^3/uL (1.8-7.8); NEUTROPHILS % (AUTO) 75 % (42-75); PLATELET COUNT 163 10^3/uL (130-400); WHITE BLOOD COUNT 7.1 10^3/uL (4.3-11.0)
[2023-02-17 03:41] LABS: ALBUMIN 4.4 GM/DL (3.2-4.5); CHLORIDE 109 MMOL/L (98-107); POTASSIUM 4.6 MMOL/L (3.6-5.0)
[2023-02-17 03:42] LABS: SODIUM 141 MMOL/L (135-145)
[2023-02-17 03:43] LABS: CALCIUM 8.9 MG/DL (8.5-10.1)
[2023-02-17 03:44] LABS: GLUCOSE 86 MG/DL (70-105); TOTAL PROTEIN 6.5 GM/DL (6.4-8.2)
[2023-02-17 03:45] LABS: CARBON DIOXIDE 16 MMOL/L (21-32)
[2023-02-17 03:46] LABS: BILIRUBIN,TOTAL 0.9 MG/DL (0.1-1.0)
[2023-02-17 03:47] LABS: ALKALINE PHOSPHATASE 114 U/L (40-136)
[2023-02-17 03:48] LABS: CREATININE SERUM 0.91 MG/DL (0.60-1.30); GFR ESTIMATED 103
[2023-02-17 03:49] LABS: BAND NEUTROPHILS 10 %; BUN/CREATININE RATIO 13
[2023-02-17 03:50] LABS: ANISOCYTOSIS MODERATE; ATYPICAL LYMPHOCYTES 4 %; BASOPHILS % (MANUAL) 6 %; LYMPHOCYTES % (MANUAL) 10 %; METAMYELOCYTES % 2 %; MICROCYTOSIS SLIGHT; MONOCYTES % (MANUAL) 8 %; NEUTROPHILS % (MANUAL) 62 %; POIKILOCYTOSIS SLIGHT; POLYCHROMASIA SLIGHT
[2023-02-17 03:51] LABS: ALANINE AMINOTRANSFERASE 20 U/L (0-55); SCHISTOCYTES SLIGHT; STOMATOCYTES SLIGHT
[2023-02-17 03:52] LABS: AMPHETAMINE SCREEN, URINE POSITIVE (NEGATIVE); BARBITURATE SCREEN URINE NEGATIVE (NEGATIVE); CANNABINOID SCREEN, URINE NEGATIVE (NEGATIVE); COCAINE SCREEN URINE NEGATIVE (NEGATIVE); METHADONE STAT NEGATIVE (NEGATIVE); OPIATE SCREEN URINE NEGATIVE (NEGATIVE); OXYCODONE STAT NEGATIVE (NEGATIVE); PROPOXYPHENE STAT NEGATIVE (NEGATIVE); TRICYCLIC ANTIDEPRESSANTS SCRE NEGATIVE (NEGATIVE)
[2023-02-17 03:58] LABS: BACTERIA,URINE FEW /HPF; BILIRUBIN,URINE NEGATIVE (NEGATIVE); CLARITY,URINE CLEAR; COLOR,URINE YELLOW; GLUCOSE, URINE (UA) NEGATIVE (NEGATIVE); KETONES,URINE 1+ (NEGATIVE); LEUKOCYTE ESTERASE ,URINE NEGATIVE (NEGATIVE); NITRITE,URINE NEGATIVE (NEGATIVE); PH,URINE 5.5 (5-9); PROTEIN,URINE NEGATIVE (NEGATIVE); WBC,URINE 0-2 /HPF
[2023-02-17] MEDS ORDERED: SULF1TAB38 PO (04:10)
[2023-02-17 04:29] VITALS: BP 145/89
== END 2023-02-17 04:29 | disposition home or self-care (01) ==
LOC: EDUNIT# 02:43 → ER 02:45
DX: F15.90 Other stimulant use, unspecified, uncomplicated (principal); L03.113 Cellulitis of right upper limb; Z72.0 Tobacco use
CPT/HCPCS: 80053; 80306; 81000; 85007; 85027; 87088; 93041; 99283; G0480; 36415; 80320

== ENCOUNTER 2023-02-17 06:39 | Emergency (ER) | payer MEDICARE ==
[2023-02-17 06:40] VITALS: BP 153/101
--- NOTE | 2023-02-17 06:48 | ED General ---
General Chief Complaint: General Problems/Pain Stated Complaint: MRSA Nursing Triage Note: BROUGHT IN BY [facility] FOR C/O MRSA INFECTION Source of Information: Patient, EMS Exam Limitations: No Limitations History of Present Illness Date Seen by Provider: Feb 17, 2023 Time Seen by Provider: 06:39 Initial Comments 52-year-old male with history of a LL brought in by [facility] for concern for MRSA infection. He was seen overnight for the same. He states he is concerned that he has a systemic MRSA infection. He has been using methamphetamine. Overnight note, labs and work-up reviewed. His white blood cell count is normal with no shift. His blood pressures are stable and he is afebrile, nontoxic in appearance. He keeps pointing to his leg. He states he is concerned for infection because there is burning in the area to his right anterior brooks. He states there is redness and streaking in this area. He is on oral Bactrim. All other systems reviewed and negative except documented per HPI. Voice recognition software was used to help create this chart Allergies and Home Medications Allergies Coded Allergies: No Known Drug Allergies (Unverified , 04/09/19) Patient Home Medication List Home Medication List Reviewed: Yes Acetaminophen with Codeine (Acetaminop-Codeine 120-12 mg/5) 120 Mg-12 Mg/5 Ml Solution, 10 ML PO Q6H PRN for cough Prescribed by: MOSES IVORY on 08/12/22 0305 Benzonatate (Tessalon Perles) 100 Mg Capsule, 200 MG PO TID PRN for cough Prescribed by: MOSES IVORY on 08/12/22 0304 Penicillin V Potassium (Penicillin V Potassium) 500 Mg Tablet, 500 MG PO QID Prescribed by: MOSES IVORY on 07/19/22 1220 Sulfamethoxazole/Trimethoprim (Bactrim Ds Tablet) 1 Each Tablet, 1 EACH PO BID Prescribed by: FLAVIA SAGASTUME on 09/17/22 0657 Review of Systems Review of Systems Constitutional: see HPI Past Mjbykme-Fyriri-Tbflkx Hx Patient Social History Tobacco Use?: Yes Use of E-Cig and/or Vaping dev: No Substance use?: Yes Substance type: Methamphetamine Alcohol Use?: Yes Immunizations Up To Date First/Initial COVID19 Vaccinat: 08/2021 Second COVID19 Vaccination Ramon: 08/2021 Third COVID19 Vaccination Date: 08/2021 Seasonal Allergies Seasonal Allergies: No Past Medical History Surgery/Hospitalization HX: 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, HYPERTENSION, MITRAL VALVE REGURGITATION Surgeries: Yes (BILATERAL CARPAL TUNNEL SURGERIES, bone marrow biopsy) Orthopedic Respiratory: No Cardiac: Yes Hypertension, Valvular Heart Disease Neurological: Yes Neuropathy Genitourinary: No Gastrointestinal: No Musculoskeletal: No Endocrine: No HEENT: No Cancer: Yes (ALL) Leukemia Did You Recieve Any Treatments: Yes What Type of Treatment Did You: Chemotherapy, Surgical Intervention Psychosocial: Yes (OCD, substance abuse) ADD/ADHD Integumentary: No Physical Exam Vital Signs Capillary Refill : Height, Weight, BMI Height: '" Weight: lbs. oz. kg; 32.00 BMI Method: General Appearance: No Apparent Distress, WD/WN HEENT: Normal ENT Inspection, Pharynx Normal Neck: Normal Inspection, Non Tender, Supple Respiratory: Chest Non Tender, Lungs Clear, Normal Breath Sounds, No Accessory Muscle Use, No Respiratory Distress Cardiovascular: No Murmur, Normal Peripheral Pulses, Tachycardia Gastrointestinal: No Organomegaly, Non Tender, Soft Extremity: Normal Capillary Refill, Other (There is some slight desquamation on his right hand from his previous infection. There is no evidence for current infection with no erythema, abscess. He points her neck down his right anterior brooks is burning but this area is completely normal in appearance without any erythema, abscess or infection) Skin: Warm/Dry, Other (And as described above) Progress/Results/Core Measures Suspected Sepsis SIRS Temperature: Pulse: Respiratory Rate: Blood Pressure / Mean: Results/Orders Vital Signs/I&O Capillary Refill : Departure Communication (Admissions) Right hand appears greatly improved, no evidence for active or ongoing infection. Certainly no evidence for systemic infection. He does have some very mild tachycardia which I think is related to his methamphetamine use. He is nontoxic, afebrile normal white blood cell count. Will be discharged in s table condition. Impression Primary Impression: Cellulitis of right hand Disposition: 01 HOME, SELF-CARE Condition: Stable Departure-Patient Inst. Referrals: NO,LOCAL PHYSICIAN (PCP/Family) Primary Care Physician Patient Instructions: Cellulitis (Skin Infection), Adult (DC) Add. Discharge Instructions: Continue your antibiotics. There is no evidence for systemic infection at this time. Follow-up with your primary doctor All discharge instructions reviewed with patient and/or family. Voiced understanding. WILMA GARCIA DO Feb 17, 2023 06:48
== END 2023-02-17 06:51 | disposition home or self-care (01) ==
LOC: EDUNIT# 06:39 → ER 06:40
DX: L03.113 Cellulitis of right upper limb (principal); R00.0 Tachycardia, unspecified
CPT/HCPCS: 99283

== ENCOUNTER 2023-02-17 20:29 | Emergency (ER) | payer MEDICARE ==
[~2023-02-17] VITALS: Ht 180.3 cm; Wt 111.3 kg
[2023-02-17 20:31] VITALS: BP 125/79
--- NOTE | 2023-02-17 20:43 | ED Chest Pain ---
General Chief Complaint: Chest Pain Stated Complaint: CHEST PAIN Source: patient (DIFFICULT HISTORIAN), old records History of Present Illness Date Seen by Provider: Feb 17, 2023 Time Seen by Provider: 20:35 Initial Comments PT ARRIVES VIA EMS FROM [facility] PT IS HOMELESS AND IS METHAMPHETAMINE ADDICT AND ALCOHOLIC PT HAD CALLED EMS EARLIER THIS AROUND 1800 FOR CHEST PAIN, THEN REFUSED TRANSPORT C/O CHEST PAIN--HE CANNOT STATE WHEN THE PAIN STARTED OR WHAT HE WAS DOING WHEN IT STARTED STATES PAIN RADIATES INTO HIS LEFT SHOULDER AND INTO HIS NECK RATED PAIN 4/10 EMS GAVE ASPIRIN AND NTG X 1--PAIN COMPLETELY RELIEVED PT WAS SEEN HERE IN ER LAST PM/EARLY THIS AM FOR UNRELATED ISSUES, AND BASICALLY STAYED IN ER WAITING ROOM ALL NIGHT BECAUSE HE DID NOT HAVE ANYWHERE TO GO. THIS IS PT'S 4TH VISIT IN LESS THAN 24 HOURS--FOR DIFFERENT COMPLAINTS. PT WAS RECENTLY HERE AND TRANSFERRED TO [facility] FOR MRSA SEPSIS DUE TO RIGHT HAND CELLULITIS, WITH NEUTROPENIA FEVER LABS DONE LAST NIGHT/EARLY THIS MORNING WERE NORMAL, AND PT WAS AFEBRILE PT RECEIVED ANOTHER RX FOR BACTRIM FROM [facility] 02/16/23 PT WITH A.L.L. ( ACUTE LYMPHOBLASTIC LEUKEMIA) IS NOT CURRENTLY RECEIVING ANY TREATMENT HE HAS BEEN ESSENTIALLY EVICTED FROM [facility] FOR BELLIGERENT AND AGGRESSIVE BEHAVIOR AND DRINKING ALCOHOL AND ALCOHOL BASED HAND [employer] WHILE HE WAS A PATIENT THERE. HE HAS NOT ESTABLISHED WITH NEW ONCOLOGIST PT HAS HAD RECENT BONE MARROW BIOPSY PCP: [facility] Allergies and Home Medications Allergies Coded Allergies: No Known Drug Allergies (Unverified , 04/09/19) Patient Home Medication List Home Medication List Reviewed: Yes Acetaminophen with Codeine (Acetaminop-Codeine 120-12 mg/5) 120 Mg-12 Mg/5 Ml Solution, 10 ML PO Q6H PRN for cough Prescribed by: MOSES IVORY on 08/12/22 030 Benzonatate (Tessalon Perles) 100 Mg Capsule, 200 MG PO TID PRN for cough Prescribed by: MOSES IVORY on 08/12/22 0304 Penicillin V Potassium (Penicillin V Potassium) 500 Mg Tablet, 500 MG PO QID Prescribed by: MOSES IVORY on 07/19/22 1220 Sulfamethoxazole/Trimethoprim (Bactrim Ds Tablet) 1 Each Tablet, 1 EACH PO BID Prescribed by: FLAVIA SAGASTUME on 09/17/22 0657 Review of Systems Review of Systems Constitutional: no symptoms reported Cardiovascular: See HPI Past Tpqyrny-Gyhgcp-Jpukvv Hx Patient Social History Tobacco Use?: Yes Tobacco type used: Cigarettes Smoking Status: Current Everyday Smoker Substance use?: Yes Substance type: Methamphetamine Alcohol Use?: Yes Immunizations Up To Date First/Initial COVID19 Vaccinat: 08/2021 Second COVID19 Vaccination Ramon: 08/2021 Third COVID19 Vaccination Date: 08/2021 Seasonal Allergies Seasonal Allergies: No Past Medical History Surgery/Hospitalization HX: 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 ) Hypertension, Valvular Heart Disease Neurological: Yes (LESION ON FRONTAL LOBE OF BRAIN) Neuropathy Genitourinary: No Gastrointestinal: No Musculoskeletal: No Endocrine: No HEENT: No Cancer: Yes (ALL) Leukemia Did You Recieve Any Treatments: Yes What Type of Treatment Did You: Chemotherapy, Surgical Intervention Psychosocial: Yes (OCD, substance abuse) ADD/ADHD Integumentary: Yes (MRSA CELLULITIS AND SEPSIS) Blood Disorders: Yes (A.L.L.) Family Medical History SOCIAL HISTORY: -SMOKES AT LEAST 1 PPD -ETOH--HEAVY USE ON DAILY BASIS -DRUGS--+ IV METH USE, ALSO SMOKES IT. Physical Exam Vital Signs Vital Signs - First Documented 02/17/23 02/17/23 20:31 20:39 Temp 36.8 Pulse 93 Resp 15 B/P (MAP) 125/79 (94) O2 Delivery Room Air O2 Flow Rate 2.00 FiO2 98 Capillary Refill : Height, Weight, BMI Height: '" Weight: lbs. oz. kg; BMI Method: General Appearance: No Apparent Distress, WD/WN, Other (DIRTY, UNKEMPT, MALODOROUS) Respiratory: Normal Breath Sounds Cardiovascular: Regular Rate, Rhythm Gastrointestinal: Non Tender Extremity: Normal Capillary Refill, Other (RIGHT HAND AND FINGERS WITH MILD SWELLING AND POST-INFLAMMATORY DISCOLORATION OF SKIN. ALSO HAS MILDER APPEARANCE TO LEFT 5TH FINGER. THERE IS A SCABBED WOUND TO DORSAL ASPECT OF RIGHT HAND OVER 5TH METACARPAL AREA. NO FLUCUTANCE, NO DRAINAGE, NO STREAKS. PT HAS FULL ROM, SENSORY/VASCULAR INTACT. ) Neurologic/Psychiatric: Alert, Oriented x3, No Motor/Sensory Deficits Skin: Normal Color, Warm/Dry, Other ( ABOVE) Progress/Results/Core Measures Results/Orders Lab Results Laboratory Tests Test 02/17/23 20:36 02/17/23 20:56 Range/Units White Blood Count 5.8 4.3-11.0 10^3/uL Red Blood Count 2.80 L 4.30-5.52 10^6/uL Hemoglobin 9.9 L 13.3-17.7 g/dL Hematocrit 30 L 40-54 % Mean Corpuscular Volume 105 H 80-99 fL Mean Corpuscular Hemoglobin 35 H 25-34 pg Mean Corpuscular Hemoglobin Concent 34 32-36 g/dL Red Cell Distribution Width 24.2 H 10.0-14.5 % Platelet Count 178 130-400 10^3/uL Mean Platelet Volume 10.5 9.0-12.2 fL Immature Granulocyte % (Auto) 3 % Neutrophils (%) (Auto) 63 42-75 % Lymphocytes (%) (Auto) 11 L 12-44 % Monocytes (%) (Auto) 20 H 0-12 % Eosinophils (%) (Auto) 0 0-10 % Basophils (%) (Auto) 3 0-10 % Neutrophils # (Auto) 3.7 1.8-7.8 10^3/uL Lymphocytes # (Auto) 0.6 L 1.0-4.0 10^3/uL Monocytes # (Auto) 1.2 H 0.0-1.0 10^3/uL Eosinophils # (Auto) 0.0 0.0-0.3 10^3/uL Basophils # (Auto) 0.2 H 0.0-0.1 10^3/uL Immature Granulocyte # (Auto) 0.2 H 0.0-0.1 10^3/uL Neutrophils % (Manual) 63 % Lymphocytes % (Manual) 16 % Monocytes % (Manual) 15 % Eosinophils % (Manual) 1 % Basophils % (Manual) 2 % Band Neutrophils 2 % Nucleated Red Blood Cells 1 Atypical Lymphocytes 1 % Platelet Estimate ADEQUATE Polychromasia SLIGHT Poikilocytosis SLIGHT Anisocytosis MARKED Microcytosis SLIGHT Macrocytosis MODERATE Prothrombin Time 14.1 12.2-14.7 SEC INR Comment 1.1 0.8-1.4 Activated Partial Thromboplast Time 30 24-35 SEC Sodium Level 138 135-145 MMOL/L Potassium Level 4.1 3.6-5.0 MMOL/L Chloride Level 109 H 98-107 MMOL/L Carbon Dioxide Level 17 L 21-32 MMOL/L Anion Gap 12 5-14 MMOL/L Blood Urea Nitrogen 12 7-18 MG/DL Creatinine 0.94 0.60-1.30 MG/DL Estimat Glomerular Filtration Rate 99 BUN/Creatinine Ratio 13 Glucose Level 84 70-105 MG/DL Calcium Level 8.1 L 8.5-10.1 MG/DL Corrected Calcium 8.0 L 8.5-10.1 MG/DL Magnesium Level 2.3 1.6-2.4 MG/DL Total Bilirubin 0.8 0.1-1.0 MG/DL Aspartate Amino Transf (AST/SGOT) 29 5-34 U/L Alanine Aminotransferase (ALT/SGPT) 17 0-55 U/L Alkaline Phosphatase 101 40-136 U/L Total Creatine Kinase 170 30-200 U/L Creatine Kinase MB 3.2 <6.6 NG/ML Myoglobin 49.1 10.0-92.0 NG/ML Troponin I 0.030 H <0.028 NG/ML B-Type Natriuretic Peptide 24.7 <100.0 PG/ML Total Protein 6.0 L 6.4-8.2 GM/DL Albumin 4.1 3.2-4.5 GM/DL Amylase Level 26 25-125 U/L Lipase 17 8-78 U/L Serum Alcohol < 10 <10 MG/DL Urine Opiates Screen NEGATIVE NEGATIVE Urine Oxycodone Screen NEGATIVE NEGATIVE Urine Methadone Screen NEGATIVE NEGATIVE Urine Propoxyphene Screen NEGATIVE NEGATIVE Urine Barbiturates Screen NEGATIVE NEGATIVE Ur Tricyclic Antidepressants Screen NEGATIVE NEGATIVE Urine Phencyclidine Screen NEGATIVE NEGATIVE Urine Amphetamines Screen POSITIVE H NEGATIVE Urine Methamphetamines Screen POSITIVE H NEGATIVE Urine Benzodiazepines Screen NEGATIVE NEGATIVE Urine Cocaine Screen NEGATIVE NEGATIVE Urine Cannabinoids Screen NEGATIVE NEGATIVE My Orders Orders - LILY SMITH DO Alcohol (02/17/23 20:36) Drug Screen Stat (Urine) (02/17/23 20:36) Cbc And Automated Diff (02/17/23 20:36) Magnesium (02/17/23 20:36) Chest 1 View, Ap/Pa Only (02/17/23 20:36) Ekg Tracing (02/17/23 20:36) Comprehensive Metabolic Panel (02/17/23 20:36) Myoglobin Serum (02/17/23 20:36) Protime With Inr (02/17/23 20:36) Partial Thromboplastin Time (02/17/23 20:36) O2 (02/17/23 20:36) Monitor-Rhythm Ecg Trace Only (02/17/23 20:36) Ed Iv/Invasive Line Start (02/17/23 20:36) Creatine Kinase (02/17/23 20:36) Creatine Kinase Mb (02/17/23 20:36) Lipase (02/17/23 20:36) Amylase (02/17/23 20:36) Bnp Gilchrist (02/17/23 20:36) Troponin I Rito (02/17/23 20:36) Manual Differential (02/17/23 20:36) Ed Iv/Invasive Line Start (02/17/23 21:47) Lactated Ringers 1,000 Ml (Lactated Ring (02/17/23 22:00) Vital Signs/I&O 02/17/23 02/17/23 20:31 20:39 Temp 36.8 Pulse 93 Resp 15 B/P (MAP) 125/79 (94) O2 Delivery Room Air Nasal Cannula O2 Flow Rate 2.00 FiO2 98 Progress Progress Note : Progress Note VITALS ON ARRIVAL: TEMP 36.8-98.2, HR93, RR 15, BP 125/79, O2 SAT 98% ON 2L/NC LABS: -CBC WBC 5.8, HGB 9.9, PLT 178,000 -CMP UNREMARKABLE, CA 8.1 -MG 2.3 -AMYLASE/LIPASE NEGATIVE -TROPONIN 0.03 -BNP NEGATIVE -PT/PTT/INR NORMAL -UDS + FOR METHAMPHETAMINES/AMPHETAMINES -ETOH NEGATIVE EKG IS NORMAL CXR IS NORMAL PT HAD NO SYMPTOMS DURING ENTIRE ER STAY 2149--PT IS NOW WANTING TO LEAVE. STATES HE FEELS FINE DISCUSSED TEST RESULTS, NEED FOR FOLLOW UP AND RETURN PRECAUTIONS REVIEWED PRIOR RECORDS, ALL ER VISITS Initial ECG Impression Date: Feb 17, 2023 Initial ECG Impression Time: 20:42 Initial ECG Rate: 93 Initial ECG Rhythm: Normal Sinus Initial ECG Intervals: Normal Initial ECG Impression: Normal Initial ECG Comparisson: Unchanged Comment INTERPRETED BY ME Diagnostic Imaging Comments CXR--PER RADIOLOGIST REPORT AT 2113 FINDINGS: Lungs/pleura: Slight low lung volumes are seen. Lungs are clear. There is no pneumothorax. There is no pleural effusion. Mediastinum: Unremarkable. Pulmonary vasculature: Unremarkable. Heart: Unremarkable. Bones/extrathoracic soft tissue: Unremarkable. IMPRESSION: There is no radiographic evidence of acute cardiopulmonary process. Reviewed: Reviewed by Me Departure Impression Primary Impression: Methamphetamine use Additional Impression: CHEST PAIN Disposition: HOME, SELF-CARE Condition: Stable Departure-Patient Inst. Decision time for Depature: 21:51 Referrals: NO,LOCAL PHYSICIAN (PCP) Primary Care Physician [facility] [place] Patient Instructions: Chest Pain (DC), Methamphetamine Add. Discharge Instructions: FOLLOW UP WITH [facility] IN 1-2 DAYS FOR FURTHER CARE All discharge instructions reviewed with patient and/or family. Voiced understanding. LILY SMITH DO Feb 17, 2023 20:43
[2023-02-17 21:00] LABS: BASOPHILS # (AUTO) 0.2 10^3/uL (0.0-0.1); BASOPHILS % (AUTO) 3 % (0-10); EOSINOPHILS % (AUTO) 0 % (0-10); HEMATOCRIT 30 % (40-54); HEMOGLOBIN 9.9 g/dL (13.3-17.7); LYMPHOCYTES # (AUTO) 0.6 10^3/uL (1.0-4.0); LYMPHOCYTES % (AUTO) 11 % (12-44); MEAN CORPUSCULAR HEMOGLOBIN 35 pg (25-34); MEAN CORPUSCULAR HGB CONC 34 g/dL (32-36); MEAN CORPUSCULAR VOLUME 105 fL (80-99); MEAN PLATELET VOLUME 10.5 fL (9.0-12.2); MONOCYTES # (AUTO) 1.2 10^3/uL (0.0-1.0); MONOCYTES % (AUTO) 20 % (0-12); NEUTROPHILS # (AUTO) 3.7 10^3/uL (1.8-7.8); NEUTROPHILS % (AUTO) 63 % (42-75); PLATELET COUNT 178 10^3/uL (130-400); WHITE BLOOD COUNT 5.8 10^3/uL (4.3-11.0)
--- NOTE | 2023-02-17 21:06 | Diagnostic Imaging Report ---
CLINICAL INDICATION: Patient had chest pain while at the gas station. EXAM: Portable chest x-ray, upright view. COMPARISON: Chest x-ray dated 01/29/2023. FINDINGS: Lungs/pleura: Slight low lung volumes are seen. Lungs are clear. There is no pneumothorax. There is no pleural effusion. Mediastinum: Unremarkable. Pulmonary vasculature: Unremarkable. Heart: Unremarkable. Bones/extrathoracic soft tissue: Unremarkable. IMPRESSION: There is no radiographic evidence of acute cardiopulmonary process. Dictated by: Dictated on workstation # [id number]
[2023-02-17 21:11] LABS: ALBUMIN 4.1 GM/DL (3.2-4.5); CHLORIDE 109 MMOL/L (98-107); POTASSIUM 4.1 MMOL/L (3.6-5.0); SODIUM 138 MMOL/L (135-145)
[2023-02-17 21:13] LABS: AMYLASE 26 U/L (25-125); CALCIUM 8.1 MG/DL (8.5-10.1)
[2023-02-17 21:14] LABS: GLUCOSE 84 MG/DL (70-105)
[2023-02-17 21:15] LABS: BILIRUBIN,TOTAL 0.8 MG/DL (0.1-1.0); CARBON DIOXIDE 17 MMOL/L (21-32); INR 1.1 (0.8-1.4); PROTHROMBIN TIME PATIENT 14.1 SEC (12.2-14.7)
[2023-02-17 21:17] LABS: ALKALINE PHOSPHATASE 101 U/L (40-136); CREATININE SERUM 0.94 MG/DL (0.60-1.30); GFR ESTIMATED 99
[2023-02-17 21:18] LABS: BUN/CREATININE RATIO 13
[2023-02-17 21:20] LABS: ALANINE AMINOTRANSFERASE 17 U/L (0-55); MAGNESIUM 2.3 MG/DL (1.6-2.4)
[2023-02-17 21:22] LABS: CREATINE KINASE 170 U/L (30-200); LIPASE 17 U/L (8-78)
[2023-02-17 21:24] LABS: AMPHETAMINE SCREEN, URINE POSITIVE (NEGATIVE); BARBITURATE SCREEN URINE NEGATIVE (NEGATIVE); CANNABINOID SCREEN, URINE NEGATIVE (NEGATIVE); COCAINE SCREEN URINE NEGATIVE (NEGATIVE); METHADONE STAT NEGATIVE (NEGATIVE); OPIATE SCREEN URINE NEGATIVE (NEGATIVE); OXYCODONE STAT NEGATIVE (NEGATIVE); PROPOXYPHENE STAT NEGATIVE (NEGATIVE); TRICYCLIC ANTIDEPRESSANTS SCRE NEGATIVE (NEGATIVE)
[2023-02-17 21:27] LABS: CREATINE KINASE MB 3.2 NG/ML (<6.6)
[2023-02-17] MEDS ORDERED: LACTATED RINGERS 1,000 ML 1,000 ML IV ONE (22:00)
[2023-02-17 22:04] LABS: ANISOCYTOSIS MARKED; ATYPICAL LYMPHOCYTES 1 %; BAND NEUTROPHILS 2 %; BASOPHILS % (MANUAL) 2 %; EOSINOPHILS % (MANUAL) 1 %; LYMPHOCYTES % (MANUAL) 16 %; MONOCYTES % (MANUAL) 15 %; NEUTROPHILS % (MANUAL) 63 %; NUCLEATED RED BLOOD CELLS 1; PLATELET ESTIMATE ADEQUATE; POIKILOCYTOSIS SLIGHT
[2023-02-17 22:05] LABS: MICROCYTOSIS SLIGHT; POLYCHROMASIA SLIGHT
== END 2023-02-17 21:54 | disposition home or self-care (01) ==
LOC: EDUNIT# 20:29 → ER 20:31
DX: F15.90 Other stimulant use, unspecified, uncomplicated (principal); R07.9 Chest pain, unspecified; M79.89 Other specified soft tissue disorders; F17.210 Nicotine dependence, cigarettes, uncomplicated; Z59.00 Homelessness unspecified
CPT/HCPCS: 71045; 80053; 80306; 82150; 82550; 82553; 83690; 83735; 83874; 83880; 84484; 85007; 85027; 85610; 85730; 93041; 99284; G0480; 36415; 80320; 93005

== ENCOUNTER → 2023-02-17 | Emergency (ER) | payer MEDICARE | LOC: EDUNIT# 05:22 → ER 05:25 | DX: R69 Illness, unspecified (principal) ==

== ENCOUNTER 2023-02-24 10:05 | Emergency (ER) | payer MEDICARE ==
[~2023-02-24] VITALS: Ht 180 cm; Wt 108.8 kg
[2023-02-24] MEDS ORDERED: LACTATED RINGERS 1,000 ML 1,000 ML IV ONE (10:15)
[2023-02-24 10:21] LABS: BASOPHILS # (AUTO) 0.1 10^3/uL (0.0-0.1); BASOPHILS % (AUTO) 4 % (0-10); EOSINOPHILS # (AUTO) 0.1 10^3/uL (0.0-0.3); EOSINOPHILS % (AUTO) 4 % (0-10); HEMATOCRIT 35 % (40-54); HEMOGLOBIN 11.6 g/dL (13.3-17.7); LYMPHOCYTES # (AUTO) 0.4 10^3/uL (1.0-4.0); LYMPHOCYTES % (AUTO) 13 % (12-44); MEAN CORPUSCULAR HEMOGLOBIN 36 pg (25-34); MEAN CORPUSCULAR HGB CONC 33 g/dL (32-36); MEAN CORPUSCULAR VOLUME 108 fL (80-99); MEAN PLATELET VOLUME 10.1 fL (9.0-12.2); MONOCYTES # (AUTO) 0.5 10^3/uL (0.0-1.0); MONOCYTES % (AUTO) 16 % (0-12); NEUTROPHILS # (AUTO) 1.9 10^3/uL (1.8-7.8); NEUTROPHILS % (AUTO) 62 % (42-75); PLATELET COUNT 211 10^3/uL (130-400)
[2023-02-24 10:28] LABS: ALBUMIN 4.2 GM/DL (3.2-4.5); CHLORIDE 113 MMOL/L (98-107); POTASSIUM 3.6 MMOL/L (3.6-5.0); SODIUM 145 MMOL/L (135-145)
[2023-02-24 10:30] LABS: CALCIUM 8.7 MG/DL (8.5-10.1)
[2023-02-24 10:31] LABS: GLUCOSE 97 MG/DL (70-105); TOTAL PROTEIN 6.1 GM/DL (6.4-8.2)
[2023-02-24 10:32] LABS: CARBON DIOXIDE 19 MMOL/L (21-32)
[2023-02-24 10:33] LABS: BILIRUBIN,TOTAL 0.4 MG/DL (0.1-1.0)
[2023-02-24 10:35] LABS: ALKALINE PHOSPHATASE 82 U/L (40-136); CREATININE SERUM 0.73 MG/DL (0.60-1.30); GFR ESTIMATED 111
[2023-02-24 10:36] LABS: BUN/CREATININE RATIO 14
[2023-02-24 10:37] LABS: SALICYLATE < 5.0 MG/DL (5.0-20.0)
[2023-02-24 10:38] LABS: ALANINE AMINOTRANSFERASE 21 U/L (0-55)
[2023-02-24 10:40] LABS: ACETAMINOPHEN < 10 UG/ML (10-30)
[2023-02-24 10:48] LABS: ANISOCYTOSIS MODERATE; BASOPHILS % (MANUAL) 2 %; EOSINOPHILS % (MANUAL) 3 %; LYMPHOCYTES % (MANUAL) 16 %; MONOCYTES % (MANUAL) 14 %; NEUTROPHILS % (MANUAL) 65 %
[2023-02-24 11:04] LABS: BILIRUBIN,URINE NEGATIVE (NEGATIVE); CLARITY,URINE CLEAR; COLOR,URINE YELLOW; GLUCOSE, URINE (UA) NEGATIVE (NEGATIVE); KETONES,URINE NEGATIVE (NEGATIVE); LEUKOCYTE ESTERASE ,URINE NEGATIVE (NEGATIVE); NITRITE,URINE NEGATIVE (NEGATIVE); PH,URINE 5.5 (5-9); PROTEIN,URINE NEGATIVE (NEGATIVE); WBC,URINE RARE /HPF
[2023-02-24 11:05] LABS: AMORPHOUS SEDIMENT,UR RARE AMOR URATES /LPF; BACTERIA,URINE NEGATIVE /HPF
[2023-02-24 11:06] LABS: AMPHETAMINE SCREEN, URINE NEGATIVE (NEGATIVE); BARBITURATE SCREEN URINE NEGATIVE (NEGATIVE); CANNABINOID SCREEN, URINE NEGATIVE (NEGATIVE); COCAINE SCREEN URINE NEGATIVE (NEGATIVE); METHADONE STAT NEGATIVE (NEGATIVE); OPIATE SCREEN URINE NEGATIVE (NEGATIVE); OXYCODONE STAT NEGATIVE (NEGATIVE); PROPOXYPHENE STAT NEGATIVE (NEGATIVE); TRICYCLIC ANTIDEPRESSANTS SCRE NEGATIVE (NEGATIVE)
--- NOTE | 2023-02-24 11:12 | ED Psychosocial ---
General Chief Complaint: Detox Stated Complaint: ALCOHOL DETOX Nursing Triage Note: PT PRESENTS TO ED WITH COMPLAINTS OF WANTING DETOX FROM ETOH AND BENZOS. PT REPROTS HE HAS BEEN DRINKING EVERY DAY FOR 6 MONTHS WELL TAKING HIS KLONAPIN Source: patient Exam Limitations: intoxication History of Present Illness Date Seen by Provider: Feb 24, 2023 Time Seen by Provider: 10:10 Initial Comments Here with report of alcohol and benzodiazepine abuse. Patient states that he is wanting to get off both. He drinks at least 1/5 of whiskey daily and takes clonazepam from a prescription that he gets from [place]. He states he is still a resident of [place] but also lives here. He follows with [facility]. Denies previous history of seizures. He states alcohol is a significant problem. Denies recent injury or illness. Denies suicidal homicidal ideations. Timing/Duration: other (Years) Severity: moderate Associated Symptoms: anxiety, ingestion (Alcohol and benzodiazepines) Allergies and Home Medications Allergies Coded Allergies: No Known Drug Allergies (Unverified , 04/09/19) Patient Home Medication List Home Medication List Reviewed: Yes Acetaminophen with Codeine (Acetaminop-Codeine 120-12 mg/5) 120 Mg-12 Mg/5 Ml Solution, 10 ML PO Q6H PRN for cough Prescribed by: MOSES IVORY on 08/12/22 0305 Benzonatate (Tessalon Perles) 100 Mg Capsule, 200 MG PO TID PRN for cough Prescribed by: MOSES IVORY on 08/12/22 0304 Penicillin V Potassium (Penicillin V Potassium) 500 Mg Tablet, 500 MG PO QID Prescribed by: MOSES IVORY on 07/19/22 1220 Sulfamethoxazole/Trimethoprim (Bactrim Ds Tablet) 1 Each Tablet, 1 EACH PO BID Prescribed by: FLAVIA SAGASTUME on 09/17/22 0657 Review of Systems Constitutional: see HPI; No chills, No fever EENTM: No nose congestion, No throat pain Respiratory: No cough, No short of breath Cardiovascular: No chest pain, No edema Gastrointestinal: No nausea, No vomiting Genitourinary: no symptoms reported Musculoskeletal: no symptoms reported Psychiatric/Neurological: See HPI Past Thabqky-Bsgoep-Pengvs Hx Patient Social History Tobacco Use?: Yes Smoking Status: Current Everyday Smoker Smokeless Tobacco Frequency: Current Everyday User Substance use?: Yes Substance type: Methamphetamine, Misuse of prescript meds Alcohol Use?: Yes Alcohol type: Hard Liquor Alcohol Frequency: Daily Pt feels they are or have been: No Immunizations Up To Date First/Initial COVID19 Vaccinat: 08/2021 Second COVID19 Vaccination Ramon: 08/2021 Third COVID19 Vaccination Date: 08/2021 Seasonal Allergies Seasonal Allergies: No Past Medical History Surgery/Hospitalization HX: 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 ) Hypertension, Valvular Heart Disease Neurological: Yes (LESION ON FRONTAL LOBE OF BRAIN) Neuropathy Genitourinary: No Gastrointestinal: No Musculoskeletal: No Endocrine: No HEENT: No Cancer: Yes (ALL) Leukemia Did You Recieve Any Treatments: Yes What Type of Treatment Did You: Chemotherapy, Surgical Intervention Psychosocial: Yes (OCD, substance abuse) ADD/ADHD Integumentary: Yes (MRSA CELLULITIS AND SEPSIS) Blood Disorders: Yes (A.L.L.) Family Medical History Reviewed Nursing Family Hx SOCIAL HISTORY: -SMOKES AT LEAST 1 PPD -ETOH--HEAVY USE ON DAILY BASIS -DRUGS--+ IV METH USE, ALSO SMOKES IT. Physical Exam Vital Signs - First Documented 02/24/23 10:10 Temp 36.4 Pulse 89 Resp 18 B/P (MAP) 130/82 (98) Pulse Ox 98 Capillary Refill : Less Than 3 Seconds Height, Weight, BMI Height: '" Weight: lbs. oz. kg; 33.00 BMI Method: General Appearance: WD/WN, no apparent distress, other (Sluggish appearing with slightly slurred speech) HEENT: PERRL/EOMI, pharynx normal Neck: full range of motion, supple Respiratory: lungs clear, normal breath sounds Cardiovascular: regular rate, rhythm, no murmur Gastrointestinal: non tender, soft Extremities: non-tender, normal inspection Neurologic/Psychiatric: alert, oriented x 3 Appearance/Memory: denies illness Behavior/Eye Contact: cooperative, decreased rate of speech Thoughts/Hallucinations: normal thought pattern Skin: normal color, warm/dry Progress/Results/Core Measures Results/Orders Lab Results Laboratory Tests Test 02/24/23 10:12 02/24/23 10:46 Range/Units White Blood Count 3.0 L 4.3-11.0 10^3/uL Red Blood Count 3.22 L 4.30-5.52 10^6/uL Hemoglobin 11.6 L 13.3-17.7 g/dL Hematocrit 35 L 40-54 % Mean Corpuscular Volume 108 H 80-99 fL Mean Corpuscular Hemoglobin 36 H 25-34 pg Mean Corpuscular Hemoglobin Concent 33 32-36 g/dL Red Cell Distribution Width 22.6 H 10.0-14.5 % Platelet Count 211 130-400 10^3/uL Mean Platelet Volume 10.1 9.0-12.2 fL Immature Granulocyte % (Auto) 1 % Neutrophils (%) (Auto) 62 42-75 % Lymphocytes (%) (Auto) 13 12-44 % Monocytes (%) (Auto) 16 H 0-12 % Eosinophils (%) (Auto) 4 0-10 % Basophils (%) (Auto) 4 0-10 % Neutrophils # (Auto) 1.9 1.8-7.8 10^3/uL Lymphocytes # (Auto) 0.4 L 1.0-4.0 10^3/uL Monocytes # (Auto) 0.5 0.0-1.0 10^3/uL Eosinophils # (Auto) 0.1 0.0-0.3 10^3/uL Basophils # (Auto) 0.1 0.0-0.1 10^3/uL Immature Granulocyte # (Auto) 0.0 0.0-0.1 10^3/uL Neutrophils % (Manual) 65 % Lymphocytes % (Manual) 16 % Monocytes % (Manual) 14 % Eosinophils % (Manual) 3 % Basophils % (Manual) 2 % Anisocytosis MODERATE Macrocytosis MODERATE Sodium Level 145 135-145 MMOL/L Potassium Level 3.6 3.6-5.0 MMOL/L Chloride Level 113 H 98-107 MMOL/L Carbon Dioxide Level 19 L 21-32 MMOL/L Anion Gap 13 5-14 MMOL/L Blood Urea Nitrogen 10 7-18 MG/DL Creatinine 0.73 0.60-1.30 MG/DL Estimat Glomerular Filtration Rate 111 BUN/Creatinine Ratio 14 Glucose Level 97 70-105 MG/DL Calcium Level 8.7 8.5-10.1 MG/DL Corrected Calcium 8.5 8.5-10.1 MG/DL Total Bilirubin 0.4 0.1-1.0 MG/DL Aspartate Amino Transf (AST/SGOT) 28 5-34 U/L Alanine Aminotransferase (ALT/SGPT) 21 0-55 U/L Alkaline Phosphatase 82 40-136 U/L Total Protein 6.1 L 6.4-8.2 GM/DL Albumin 4.2 3.2-4.5 GM/DL Salicylates Level < 5.0 L 5.0-20.0 MG/DL Acetaminophen Level < 10 L 10-30 UG/ML Serum Alcohol 162 H <10 MG/DL Urine Color YELLOW Urine Clarity CLEAR Urine pH 5.5 5-9 Urine Specific [place] 1.020 1.016-1.022 Urine Protein NEGATIVE NEGATIVE Urine Glucose (UA) NEGATIVE NEGATIVE Urine Ketones NEGATIVE NEGATIVE Urine Nitrite NEGATIVE NEGATIVE Urine Bilirubin NEGATIVE NEGATIVE Urine Urobilinogen 0.2 < = 1.0 MG/DL Urine Leukocyte Esterase NEGATIVE NEGATIVE Urine RBC (Auto) NEGATIVE NEGATIVE Urine RBC NONE /HPF Urine WBC RARE /HPF Urine Crystals PRESENT H /LPF Urine Amorphous Sediment RARE JAIMIE URATES H /LPF Urine Bacteria NEGATIVE /HPF Urine Casts NONE /LPF Urine Mucus SMALL H /LPF Urine Culture Indicated NO Urine Opiates Screen NEGATIVE NEGATIVE Urine Oxycodone Screen NEGATIVE NEGATIVE Urine Methadone Screen NEGATIVE NEGATIVE Urine Propoxyphene Screen NEGATIVE NEGATIVE Urine Barbiturates Screen NEGATIVE NEGATIVE Ur Tricyclic Antidepressants Screen NEGATIVE NEGATIVE Urine Phencyclidine Screen NEGATIVE NEGATIVE Urine Amphetamines Screen NEGATIVE NEGATIVE Urine Methamphetamines Screen NEGATIVE NEGATIVE Urine Benzodiazepines Screen POSITIVE H NEGATIVE Urine Cocaine Screen NEGATIVE NEGATIVE Urine Cannabinoids Screen NEGATIVE NEGATIVE My Orders Orders - NICK MOBLEY MD Ua Culture If Indicated (02/24/23 10:15) Cbc And Automated Diff (02/24/23 10:15) Comprehensive Metabolic Panel (02/24/23 10:15) Alcohol (02/24/23 10:15) Drug Screen Stat (Urine) (02/24/23 10:15) Acetaminophen (02/24/23 10:15) Salicylate (02/24/23 10:15) Ekg Tracing (02/24/23 10:15) Monitor-Rhythm Ecg Trace Only (02/24/23 10:15) Ed Iv/Invasive Line Start (02/24/23 10:15) Lactated Ringers 1,000 Ml (Lactated Ring (02/24/23 10:15) General/Regular (02/24/23 Lunch) Manual Differential (02/24/23 10:12) Medications Given in ED Current Medications Medications Dose Ordered Sig/Chani Route Start Time Stop Time Status Last Admin Dose Admin Lactated Ringer's 1,000 ml @ 0 mls/hr Q0M ONCE IV 02/24/23 10:15 02/24/23 10:17 DC 02/24/23 10:22 0 MLS/HR Vital Signs/I&O 02/24/23 10:10 Temp 36.4 Pulse 89 Resp 18 B/P (MAP) 130/82 (98) Pulse Ox 98 Blood Pressure Mean: 98 Progress Progress Note : Progress Note Seen and evaluated. We will do work-up for evaluation including IV, labs including CBC, CMP, thyroid, alcohol, Tylenol and salicylate levels as well as UA and UDS. EKG ordered. LR 1 L bolus ordered. Monitor patient. Differential diagnosis includes EtOH abuse, electrolyte abnormality, dehydration, drug abuse 1200: CBC reviewed and white count low at 3.0 with hemoglobin of 11.6 and normal platelets. Noted moderate and Alvarez sites and macrocytosis. CMP reviewed and shows grossly normal electrolytes with normal creatinine and normal LFTs. Grossly normal. UDS is positive for benzodiazepines and salicylate and Tylenol are negative with alcohol of 162 and patient is sleeping well but did ask for lunch and we will try to provide that. Considering admission. 1340: Patient took out his IV impact of his staff and is leaving. I did offer to continue work-up and try to get admission versus resources for outpatient rehab. Patient states that he has the resources and he just wants to go but appreciates the opportunity to discuss it. Patient left prior to discharge instructions. Initial ECG Impression Date: Feb 24, 2023 Initial ECG Impression Time: 10:31 Initial ECG Rate: 81 Initial ECG Rhythm: Normal Sinus Comment Sinus rhythm with moderate intraventricular conduction delay. Leftward axis, no evidence of ST elevation [place]. Interpreted by me. Departure Impression Primary Impression: Alcohol abuse Additional Impression: Drug abuse Disposition: 07 AGAINST MEDICAL ADVICE Condition: Stable Departure-Patient Inst. Decision time for Depature: 13:40 Referrals: [facility] (PCP/Family) Primary Care Physician Patient Instructions: Alcohol Use Disorder (DC), Drug Misuse and Addiction (DC), Leaving Against Medical Advice Add. Discharge Instructions: All discharge instructions reviewed with patient and/or family. Voiced understanding. Left prior to discharge instructions NICK MOBLEY MD Feb 24, 2023 11:12
[2023-02-24 13:43] VITALS: BP 131/89
== END 2023-02-24 13:43 | disposition left against medical advice (07) ==
LOC: EDUNIT# 10:05 → ER 10:06
DX: F10.10 Alcohol abuse, uncomplicated (principal); F13.10 Sedative, hypnotic or anxiolytic abuse, uncomplicated; F17.210 Nicotine dependence, cigarettes, uncomplicated; Y90.6 Blood alcohol level of 120-199 mg/100 ml
CPT/HCPCS: 80053; 80306; 81000; 85007; 85027; 93041; 99284; G0480 ×3; 36415; 80320; 80329

== ENCOUNTER 2023-02-28 11:58 | Outpatient (RCR) | payer MEDICARE | END 2023-03-14 | disposition home or self-care (01) | LOC: ONC 11:58 | PROVIDERS: ATTEND Internal Medicine Hematology & Oncology | DX: C91.00 Acute lymphoblastic leukemia not having achieved remission (principal) | CPT/HCPCS: 99204 ==

== ENCOUNTER 2023-03-29 14:51 | Outpatient (RCR) | payer MEDICARE ==
[2023-03-15 15:11] LABS: BASOPHILS # (AUTO) 0.1 10^3/uL (0.0-0.1); BASOPHILS % (AUTO) 2 % (0-10); EOSINOPHILS # (AUTO) 0.5 10^3/uL (0.0-0.3); EOSINOPHILS % (AUTO) 6 % (0-10); HEMATOCRIT 43 % (40-54); HEMOGLOBIN 14.2 g/dL (13.3-17.7); LYMPHOCYTES # (AUTO) 0.7 10^3/uL (1.0-4.0); LYMPHOCYTES % (AUTO) 9 % (12-44); MEAN CORPUSCULAR HEMOGLOBIN 36 pg (25-34); MEAN CORPUSCULAR HGB CONC 33 g/dL (32-36); MEAN CORPUSCULAR VOLUME 108 fL (80-99); MEAN PLATELET VOLUME 9.9 fL (9.0-12.2); MONOCYTES # (AUTO) 0.6 10^3/uL (0.0-1.0); MONOCYTES % (AUTO) 8 % (0-12); NEUTROPHILS # (AUTO) 5.7 10^3/uL (1.8-7.8); NEUTROPHILS % (AUTO) 73 % (42-75); PLATELET COUNT 141 10^3/uL (130-400); WHITE BLOOD COUNT 7.8 10^3/uL (4.3-11.0)
[2023-03-15 15:32] LABS: ALANINE AMINOTRANSFERASE 19 U/L (0-55); ALBUMIN 4.6 GM/DL (3.2-4.5); ALKALINE PHOSPHATASE 77 U/L (40-136); BILIRUBIN,TOTAL 0.5 MG/DL (0.1-1.0); BUN/CREATININE RATIO 14; CALCIUM 9.3 MG/DL (8.5-10.1); CARBON DIOXIDE 22 MMOL/L (21-32); CHLORIDE 108 MMOL/L (98-107); CREATININE SERUM 0.88 MG/DL (0.60-1.30); GFR ESTIMATED 105; GLUCOSE 78 MG/DL (70-105); POTASSIUM 3.9 MMOL/L (3.6-5.0); SODIUM 142 MMOL/L (135-145); TOTAL PROTEIN 6.5 GM/DL (6.4-8.2)
[2023-03-29 15:21] LABS: BASOPHILS % (AUTO) 0 % (0-10); EOSINOPHILS # (AUTO) 0.1 10^3/uL (0.0-0.3); EOSINOPHILS % (AUTO) 4 % (0-10); HEMATOCRIT 45 % (40-54); HEMOGLOBIN 15.3 g/dL (13.3-17.7); LYMPHOCYTES # (AUTO) 0.5 X 10^3 (1.0-4.0); LYMPHOCYTES % (AUTO) 17 % (12-44); MEAN CORPUSCULAR HEMOGLOBIN 35 pg (25-34); MEAN CORPUSCULAR HGB CONC 34 g/dL (32-36); MEAN CORPUSCULAR VOLUME 103 fL (80-99); MONOCYTES # (AUTO) 0.2 X 10^3 (0.0-1.0); MONOCYTES % (AUTO) 8 % (0-12); NEUTROPHILS # (AUTO) 2.2 X 10^3 (1.8-7.8); NEUTROPHILS % (AUTO) 71 % (42-75); PLATELET COUNT 97 10^3/uL (130-400); WHITE BLOOD COUNT 3.1 10^3/uL (4.3-11.0)
[2023-03-29 15:32] LABS: ALANINE AMINOTRANSFERASE 18 U/L (0-55); ALKALINE PHOSPHATASE 78 U/L (40-136); BILIRUBIN,TOTAL 0.7 MG/DL (0.1-1.0); BUN/CREATININE RATIO 20; CALCIUM 9.4 MG/DL (8.5-10.1); CARBON DIOXIDE 23 MMOL/L (21-32); CHLORIDE 109 MMOL/L (98-107); CREATININE SERUM 0.85 MG/DL (0.60-1.30); GFR ESTIMATED 106; GLUCOSE 89 MG/DL (70-105); PHOSPHORUS 4.2 MG/DL (2.3-4.7); POTASSIUM 4.1 MMOL/L (3.6-5.0); SODIUM 143 MMOL/L (135-145); TOTAL PROTEIN 6.7 GM/DL (6.4-8.2); URIC ACID 7.9 MG/DL (2.6-7.2)
[2023-03-29 15:33] LABS: ALBUMIN 4.7 GM/DL (3.2-4.5)
== END 2023-04-13 | disposition home or self-care (01) ==
LOC: ONC 14:51
PROVIDERS: ATTEND Internal Medicine Hematology & Oncology
DX: C91.00 Acute lymphoblastic leukemia not having achieved remission (principal)
CPT/HCPCS: 80053; 85025; G0463; 36415; 84100; 84550; 99214